=== PATIENT | male | born 1950 | race American Indian/Alaskan Native ===

== ENCOUNTER 2022-03-20 12:42 | Inpatient (IN) | payer MEDICARE ==
[2022-03-20] MEDS ORDERED: DEXTROSE 50% IN WATER (25GM) 50 ML SYRINGE IV PRN (16:42)
[2022-03-20] MEDS ORDERED: ACETAMINOPHEN 325 MG TAB PO PRN (16:42)
--- NOTE | 2022-03-20 17:02 | Event Note ---
Date: 03/20/22 38 minutes invested in record review and placing orders. Patient is a new diabetic and was covered with SSI at outside hospital. He was discharged on Jardiance 10mg daily but that medication is not available. Will continue to cover on SSI and send home with a script for Jardiance. Patient has been cleared for ASA. OSH notes reference CAT, so will start off on heparin TID until we have updated labs in AM and may transition over to lovenox if renal fxn is stable.
[2022-03-21] MEDS: HEPARIN 5,000 UNIT/1 ML VIAL SUB-Q SCH ×4 (06:51→21:32)
[2022-03-21 06:55] LABS: Basophils # (Auto) 0.1 K/mm3 (0.0-0.1); Basophils % (Auto) 1.1 % (0.0-1.8); Eosinophils # (Auto) 0.2 K/mm3 (0.0-0.4); Eosinophils % (Auto) 1.9 % (0.0-4.3); Hematocrit 39.9 % (35.5-45.6); Hemoglobin 12.7 gm/dl (11.8-15.2); Lymphocytes # (Auto) 1.4 K/mm3 (1.2-5.4); Lymphocytes % (Auto) 14.6 % (13.4-35.0); Mean Corpuscular HGB Conc 32 % (32-34); Mean Corpuscular Volume 71 fl (84-94); Monocytes # (Auto) 1.1 K/mm3 (0.0-0.8); Monocytes % (Auto) 11.7 % (0.0-7.3); Platelet Count 155 K/mm3 (140-440); Red Blood Count 5.58 M/mm3 (3.65-5.03); Red Cell Distribution Width 16.4 % (13.2-15.2)
[2022-03-21 07:17] LABS: Alanine Aminotransferase 20 units/L (7-56); Albumin 3.6 g/dL (3.9-5); BUN/Creatinine Ratio 19; Blood Urea Nitrogen 15 mg/dL (9-20); Calcium 9.5 mg/dL (8.4-10.2); Hemolysis Index 1
[2022-03-21] MEDS: carvediloL 3.125 MG TAB PO SCH ×3 (08:40→21:31)
[2022-03-21] MEDS: INSULIN LISPRO 100 UNIT/ML SUB-Q SCH ×5 (08:40→21:37)
[2022-03-21] MEDS: ASPIRIN EC 81 MG TAB PO SCH (09:31)
[2022-03-21] MEDS: LOSARTAN 25 MG TAB PO SCH (09:31)
--- NOTE | 2022-03-21 15:23 | History and Physical Report ---
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 CT head showed progressive, expanding right-sided infarct involving right frontal and right parietal lobes. MRI brain demonstrated the infarcts again involving the right posterior frontal lobe and the right occipital lobe with a small amount of hemorrhage at the right occipital lobe and trace amount at the right frontal lobe. Patient had a A1c of 6.5 which is a new diagnosis for the patient. Permissive hypertension allowed until medications were restarted. Patient is right-hand dominant and has left hemiparesis. Questionable visual involvement however patient states that he is seeing fine and appears to be able to identify objects in the room. Echo showed HFrEF which is also new diagnosis with an ejection fraction of 35 to 40%. Patient was started on Jardiance at discharge however this is not available in the hospital, will start patient on this medication once he discharges from us. After the patient was medically stabilized they were transferred for further rehabilitation. All available medical records have been reviewed. Plan of care was discussed with patient and family. Patient was discussed during team conference. So far with therapy he is doing fairly well on his first day, is impulsive and has decreased safety awareness. Balance is also poor. Questionable left inattention or visual deficits. On my exam vision appears normal but will examine over the next couple of days in different environments to see if the trend is developing. Discussed with the patient, , and son to expect to be here for approximately 2 weeks depending on his rate of recovery. Past History Past Medical History: hypertension Past Surgical History: No surgical history Social history: lives with family, smoking, other (Patient states that he drinks occasionally, smokes 2 joints a day). denies: alcohol abuse Family history: diabetes, hypertension, stroke Medications and Allergies Allergies Allergy/AdvReac Type Severity Reaction Status Date / Time No Known Allergies Allergy Unverified 03/20/22 16:41 Active Meds: Active Medications Acetaminophen (Acetaminophen 325 Mg Tab) 650 mg PO Q6H PRN PRN Reason: Pain MILD(1-3)/Fever >100.5/FRAIRE Hydrocodone Bitart/Acetaminophen (Hydrocodone/Acetaminophen 5-325 Mg Tab) 1 each PO Q8H PRN PRN Reason: Pain, Moderate (4-6) Aspirin (Aspirin Ec 81 Mg Tab) 81 mg PO QDAY [facility] Last Admin: 03/21/22 09:31 Dose: 81 mg Atorvastatin Calcium (Atorvastatin 40 Mg Tab) 40 mg PO QHS [facility] Last Admin: 03/21/22 08:40 Dose: Not Given Carvedilol (Carvedilol 3.125 Mg Tab) 3.125 mg PO BID [facility] Last Admin: 03/21/22 09:31 Dose: 3.125 mg Dextrose (Dextrose 50% In Water (25gm) 50 Ml Syringe) 50 ml IV Q30MIN PRN; Protocol PRN Reason: Hypoglycemia Heparin Sodium (Porcine) (Heparin 5,000 Unit/1 Ml Vial) 5,000 unit SUB-Q Q8HR [facility] Last Admin: 03/21/22 14:24 Dose: 5,000 unit Insulin Human Lispro (Insulin Lispro 100 Unit/Ml) 0 unit SUB-Q ACHS [facility]; Protocol Last Admin: 03/21/22 13:00 Dose: Not Given Losartan Potassium (Losartan 25 Mg Tab) 25 mg PO QDAY [facility] Last Admin: 03/21/22 09:31 Dose: 25 mg Review of Systems All systems: negative (ROS negative for 10 systems except as noted below with pertinent positives and negatives.) Constitutional: weakness, no lethargy Ears, nose, mouth and throat: no decreased hearing, no dysphagia Cardiovascular: no chest pain, no palpitations, no rapid/irregular heart beat, no edema Respiratory: no cough, no shortness of breath Gastrointestinal: no abdominal pain, no nausea, no vomiting, no diarrhea Genitourinary Male: no dysuria Musculoskeletal: gait dysfunction, no arthritis Integumentary: no rash, no pruritis, no redness, no sores Neurological: lack of coordination, change in speech, gait dysfunction, para lysis, no parathesias Psychiatric: no change in appetite, no disorientation Endocrine: high blood sugars Exam - Exam Narrative exam: MUSCULOSKELETAL SPECIALTY EXAM CONSTITUTIONAL: Well developed, well nourished, appropriately groomed. RIGHT hand dominant. LYMPHATIC: No appreciable abnormalities palpable in neck RESPIRATORY: Clear to auscultation bilaterally, no increased work of breathing CARDIOVASCULAR: Regular Rate/ Rhythm, no swelling, edema or tenderness in BUE or BLE. Pulses palpable in all extremities. All extremities warm. GI: + bowel sounds, soft, NTTP, nondistended. INTEGUMENTARY: Normal, no lesion, rash, masses or bruising noted in extremities. MUSCULOSKELETAL: BUE and BLE normal without defect, crepitus, subluxation, effusion, arthritic changes or TTP. R 4+/5 L 2-3 /5 ROM decreased on the left, normal on right Tone decreased on left, normal on right NEURO: CN II : Visual [place] full to confrontation CN II, III : PERRL CN III, IV, : EOMI CN V : Facial sensation intact CN VII : Left facial droop CN VIII : Hearing intact to finger rustle CN IX, X : Palate/uvula elevate midline, phonation normal CN XI : Reduced shoulder shrug on the left CN XII : Tongue protrudes midline Sensation intact in all extremities without extinction. Reflexes 2+ on right, 3+ on left at biceps, brachioradialis and patella. No clonus at ankles. Coordination intact in RUE. No tremor noted in 4 extremities. Naming and repetition intact. Follows 2 step commands. Aphasia not appreciated Dysarthria very mild Dysphagia not appreciated Neglect not appreciated POSTURE and GAIT: Sitting posture good. Balance impaired, gait deferred until seen with therapy. PSYCH: Alert, oriented x3, affect appears euthymic. Insight appears intact on examination but therapy states that he is impulsive and has decreased safety awareness. - Constitutional Vitals: Vital Signs - 12hr 03/21/22 03/21/22 08:52 09:01 Temperature 98.0 F Pulse Rate 57 L Blood Pressure 153/76 O2 Sat by Pulse 96 100 Oximetry - Labs CBC & Chem 7: 03/21/22 06:34 03/21/22 06:34 Labs: Laboratory Results - last 72 hr 03/21/22 03/21/22 03/21/22 00:45 06:34 06:34 WBC 9.7 RBC 5.58 H Hgb 12.7 Hct 39.9 MCV 71 L MCH 23 L MCHC 32 RDW 16.4 H Plt Count 155 Lymph % (Auto) 14.6 [place] % (Auto) 11.7 H Eos % (Auto) 1.9 Baso % (Auto) 1.1 Lymph # (Auto) 1.4 [place] # (Auto) 1.1 H Eos # (Auto) 0.2 Baso # (Auto) 0.1 Seg Neutrophils % 70.7 H Seg Neutrophils # 6.9 Sodium 141 Potassium 4.6 Chloride 105.4 Carbon Dioxide 26 Anion Gap 14 BUN 15 Creatinine 0.8 Estimated GFR > 60 BUN/Creatinine Ratio 19 Glucose 93 POC Glucose 106 H Calcium 9.5 Total Bilirubin 0.50 AST 23 ALT 20 Alkaline Phosphatase 51 Total Protein 6.7 Albumin 3.6 L Albumin/Globulin Ratio 1.2 03/21/22 07:46 WBC RBC Hgb Hct MCV MCH MCHC RDW Plt Count Lymph % (Auto) [place] % (Auto) Eos % (Auto) Baso % (Auto) Lymph # (Auto) [place] # (Auto) Eos # (Auto) Baso # (Auto) Seg Neutrophils % Seg Neutrophils # Sodium Potassium Chloride Carbon Dioxide Anion Gap BUN Creatinine Estimated GFR BUN/Creatinine Ratio Glucose POC Glucose 102 Calcium Total Bilirubin AST ALT Alkaline Phosphatase Total Protein Albumin Albumin/Globulin Ratio Assessment and Plan Assessment and plan: Patient was assessed and evaluated for Acute Inpatient Rehab Unit. Due to the patients above-mentioned medical complexity, along with decreased functional mobility and self care, this patient continues to require and be appropriate for a comprehensive, multidisciplinary [id number] rehabilitation program. These needs cannot be met in an outpatient or other less intensive setting. The patient would continue to benefit from skilled th erapy intervention for at least 3 hours per day, five days a week, with techniques specific to the needs of the patient to improve function, activities of daily living, and reintegration into the community. The patient continues to require: -- OT to improve ROM, self-care, and learn use of adaptive equipment -- PT to improve strength and balance, functional transfers, and ambulation with energy conservation techniques to improve functional mobility -- SAFETY INTERN to address cognitive deficits -- 24 hour RN to ensure and prevent skin breakdown, promote progressive independence while ensuring safety, ensure education regarding medications, and incorporation of the rehabilitation at the bedside -- 24 hour Aircraft Engine Mechanic Supervisor to coordinate this interdisciplinary program, and to manage/prevent complications as a result of the patients medical comorbidities. -Plan of care by day 4 -Weekly team conferences With such a program, there is a reasonable certainty that the goals individualized for this patient can be achieved within the specified length of stay. CVA: Continue Secondary Stroke Prevention (Antithrombotic, Statin (Goal LDL-C <70), BP control (Goal <140/90), GLU control (Goal A1c <7), and lifestyle modification). Monitor for recurrent stroke or post-stroke recrudescence. Continue neuromotor therapy as above. Family training when available. Monitor for post stroke depression, cognitive deficits, seizure, dysphagia, aphasia, shoulder hand syndrome, sensory deficits, spasticity, bowel/bladder deficits, sleep disturbance, vision deficits and DVT. Prognosis for recovery and Secondary Stroke Prevention discussed. Follow up with Neurology. No driving until cleared by Neurologist. 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 Goal blood pressure less than 140/90. Avoid hypotension Type 2 diabetes: New diagnosis, continue coverage with sliding scale insulin. Carb controlled diet. A1c 6.5. Outside hospital ordered Jardiance which is not available in house. We will start patient on Jardiance at discharge which is what they do it as well. HFrEF: New diagnosis EF 35 to 40%. Continue Coreg and Cozaar. Monitor for any signs of volume overload. Start Jardiance as outpatient Marijuana abuse: Discussed with patient the need for cessation. Patient states that he would likely cut down to 1/day. ADL dysfunction: OT will work on improving ability to perform ADLs (including assistive devices) to increase independence and decrease caregiver burden and improve functional transfers and mobility training. Difficulty walking: PT will work on gait training and proper use of assistive devices and advance as appropriate to use of stairs and outside ambulation on uneven surfaces. Unsteadiness on feet: PT will work on improving static and dynamic sitting and standing balance as well as proper use of assistive devices to decrease risk of falls. Abnormality of gait: PT will work to improve safety and efficiency of gait thro [facility] neuromotor training and gait training along with instruction on proper use of assistive devices. Muscle weakness: PT & OT will work on strengthening exercises to improve functional strength including mixture of closed and open kinetic chain exercises. Debility: PT & OT will work on improving overall functional status to improve participation with ADLs, mobility and social involvement. Fatigue: PT & OT will work on improving endurance through aerobic exercises and therapeutic activity while monitoring patients tolerance for activity and vital signs as needed. DVT ppx: Heparin currently but with renal function normalized since outside hospital we will start on Lovenox in the a.m. Pain: Continue physical modalities in therapy and pain medications as needed to achieve functional pain control. Sleep: Monitor and address as needed. Bowel: Monitor and address as needed. Appetite: Monitor and address as needed. Discharge planning: Pending therapy progress and care plan meeting. Will continue discussion with therapy team, SW, patient and family. Restrictions/ Precautions: Falls WB status: FWB Functional Hx: ADLs: Independent Cognition: Independent Mobility: No AD Barriers to Discharge: Decreased mobility and ability to perform self care, balance deficits, weakness Estimated Length of Stay: 1418 days Discharge Destination: Home with family POST ADMISSION PHYSICIAN EVALUATION I have examined the patient and find that functional status, medical condition and appropriateness for IRF admission are essentially unchanged from those described in the preadmission screening. Will monitor for worsening neurologic dysfunction, shoulder-hand syndrome, post stroke depression, recrudescence or extension, DVT/PE, bowel and bladder complications and complications due to hypertension, diabetes, heart failure and electrolyte abnormalities. Will attempt to avoid occurrence of these issues or treat them if they present themselves.
--- NOTE | 2022-03-22 07:42 | Progress Note ---
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 CT head showed progressive, expanding right-sided infarct involving right frontal and right parietal lobes. MRI brain demonstrated the infarcts again involving the right posterior frontal lobe and the right occipital lobe with a small amount of hemorrhage at the right occipital lobe and trace amount at the right frontal lobe. Patient had a A1c of 6.5 which is a new diagnosis for the patient. Permissive hypertension allowed until medications were restarted. Patient is right-hand dominant and has left hemiparesis. Questionable visual involvement however patient states that he is seeing fine and appears to be able to identify objects in the room. Echo showed HFrEF which is also new diagnosis with an ejection fraction of 35 to 40%. Patient was started on Jardiance at discharge however this is not available in the hospital, will start patient on this medication once he discharges from us. After the patient was medically stabilized they were transferred for further rehabilitation. All available medical records have been reviewed. Plan of care was discussed with patient and family. Interval History: Patient is participating in therapy and making reasonable progress. Taking rest breaks as needed. +BM. Denies pain, palpitations, dyspnea, cough, N/V, or joint pain. CVA: No signs of shoulder-hand syndrome, post drug depression or worsening neurologic changes or spasticity. Continue to monitor. Continue secondary stroke prevention and therapy. Hypertension: Continue medications and adjust as needed, goal less than 140/90. Doing fairly well currently Diabetes, new onset: Continue carb controlled diet and coverage with sliding scale. Patient will discharge home on Jardiance which is not available currently HFrEF: New diagnosis, no signs of fluid overload or cardiac distress. Continue to monitor ADL and mobility dysfunction: Continue therapy to improve patient's ability to ambulate and perform ADLs with the least amount of intervention as possible. Poor balance: Continue therapy to improve patient's steadiness on feet and static/dynamic balance Impulsiveness and poor safety awareness: Continue therapy to improve safety awareness. This may be personality more so than actual stroke related issue. Have consulted and discussed with speech therapy to assess for cognitive issues that may be able to be addressed. All records, vitals, labs and medications were reviewed. No other issues per patient, nursing or therapy. Objective - Exam Narrative Exam: MUSCULOSKELETAL SPECIALTY EXAM CONSTITUTIONAL: Well developed, well nourished, appropriately groomed. RIGHT hand dominant. RESPIRATORY: Clear to auscultation bilaterally, no increased work of breathing CARDIOVASCULAR: Regular Rate/ Rhythm, no swelling, edema or tenderness in BUE or BLE. All extremities warm. GI: + bowel sounds, soft, NTTP, nondistended. INTEGUMENTARY: Normal, no lesion, rash, masses or bruising noted in extremities. MUSCULOSKELETAL: BUE and BLE normal without defect, crepitus, subluxation, effusion, arthritic changes or TTP. R 4+/5 L 2-3 /5 ROM decreased on the left, normal on right Tone decreased on left, normal on right NEURO: CN VII : Left facial droop CN XI : Reduced shoulder shrug on the left Sensation intact in all extremities without extinction. No tremor noted in 4 extremities. Naming and repetition intact. Follows 2 step commands. Aphasia not appreciated Dysarthria very mild Dysphagia not appreciated Neglect not appreciated POSTURE and GAIT: Sitting posture good. Balance impaired, gait deferred until seen with therapy. PSYCH: Alert, oriented x3, affect appears euthymic. Insight appears intact on examination but therapy states that he is impulsive and has decreased safety awareness. - Constitutional Vitals: Vital Signs - 12hr 03/21/22 03/21/22 03/21/22 21:25 21:31 23:53 Temperature 98.9 F 98.5 F Pulse Rate 64 64 63 Respiratory 18 14 Rate Blood Pressure 138/55 129/52 Blood Pressure 158/55 [Right] O2 Sat by Pulse 98 95 Oximetry 03/22/22 03/22/22 00:00 05:09 Temperature 97.9 F Pulse Rate 50 L Respiratory 14 Rate Blood Pressure 122/64 Blood Pressure [Right] O2 Sat by Pulse 98 98 Oximetry - Allied health notes Allied health notes reviewed: nursing, PT, OT - Labs CBC & Chem 7: 03/21/22 06:34 03/21/22 06:34 Labs: Laboratory Results - last 72 hr 03/21/22 03/21/22 03/21/22 00:45 06:34 06:34 WBC 9.7 RBC 5.58 H Hgb 12.7 Hct 39.9 MCV 71 L MCH 23 L MCHC 32 RDW 16.4 H Plt Count 155 Lymph % (Auto) 14.6 [place] % (Auto) 11.7 H Eos % (Auto) 1.9 Baso % (Auto) 1.1 Lymph # (Auto) 1.4 [place] # (Auto) 1.1 H Eos # (Auto) 0.2 Baso # (Auto) 0.1 Seg Neutrophils % 70.7 H Seg Neutrophils # 6.9 Sodium 141 Potassium 4.6 Chloride 105.4 Carbon Dioxide 26 Anion Gap 14 BUN 15 Creatinine 0.8 Estimated GFR > 60 BUN/Creatinine Ratio 19 Glucose 93 POC Glucose 106 H Calcium 9.5 Total Bilirubin 0.50 AST 23 ALT 20 Alkaline Phosphatase 51 Total Protein 6.7 Albumin 3.6 L Albumin/Globulin Ratio 1.2 03/21/22 03/21/22 03/21/22 07:46 16:06 21:14 WBC RBC Hgb Hct MCV MCH MCHC RDW Plt Count Lymph % (Auto) [place] % (Auto) Eos % (Auto) Baso % (Auto) Lymph # (Auto) [place] # (Auto) Eos # (Auto) Baso # (Auto) Seg Neutrophils % Seg Neutrophils # Sodium Potassium Chloride Carbon Dioxide Anion Gap BUN Creatinine Estimated GFR BUN/Creatinine Ratio Glucose POC Glucose 102 90 117 H Calcium Total Bilirubin AST ALT Alkaline Phosphatase Total Protein Albumin Albumin/Globulin Ratio Assessment and Plan CVA: Continue Secondary Stroke Prevention (Antithrombotic, Statin (Goal LDL-C <70), BP control (Goal <140/90), GLU control (Goal A1c <7), and lifestyle modification). Monitor for recurrent stroke or post-stroke recrudescence. Continue neuromotor therapy as above. Family training when available. Monitor for post stroke depression, cognitive deficits, seizure, dysphagia, aphasia, shoulder hand syndrome, sensory deficits, spasticity, bowel/bladder deficits, sleep disturbance, vision deficits and DVT. Prognosis for recovery and Secondary Stroke Prevention discussed. Follow up with Neurology. No driving until cleared by Neurologist. 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 Goal blood pressure less than 140/90. Avoid hypotension Type 2 diabetes: New diagnosis, continue coverage with sliding scale insulin. Carb controlled diet. A1c 6.5. Outside hospital ordered Jardiance which is not available in house. We will start patient on Jardiance at discharge which is what they do it as well. HFrEF: New diagnosis EF 35 to 40%. Continue Coreg and Cozaar. Monitor for any signs of volume overload. Start Jardiance as outpatient Marijuana abuse: Discussed with patient the need for cessation. Patient states that he would likely cut down to 1/day. Impulsiveness and poor safety awareness: Continue to reinforce safety through therapy. Will have speech therapy evaluate for any cognitive issues. May be personality related. ADL dysfunction: OT will work on improving ability to perform ADLs (including assistive devices) to increase independence and decrease caregiver burden and improve functional transfers and mobility training. Difficulty walking: PT will work on gait training and proper use of assistive devices and advance as appropriate to use of stairs and outside ambulation on uneven surfaces. Unsteadiness on feet: PT will work on improving static and dynamic sitting and standing balance as well as proper use of assistive devices to decrease risk of falls. Abnormality of gait: PT will work to improve safety and efficiency of gait through neuromotor training and gait training along with instruction on proper use of assistive devices. Muscle weakness: PT & OT will work on strengthening exercises to improve functional strength including mixture of closed and open kinetic chain e xercises. Debility: PT & OT will work on improving overall functional status to improve participation with ADLs, mobility and social involvement. Fatigue: PT & OT will work on improving endurance through aerobic exercises and therapeutic activity while monitoring patients tolerance for activity and vital signs as needed. DVT ppx: Lovenox Pain: Continue physical modalities in therapy and pain medications as needed to achieve functional pain control. Sleep: Monitor and address as needed. Bowel: Monitor and address as needed. Appetite: Monitor and address as needed. Discharge planning: Pending therapy progress and care plan meeting. Will continue discussion with therapy team, SW, patient and family. Restrictions/ Precautions: Falls WB status: FWB Functional Hx: ADLs: Independent Cognition: Independent Mobility: No AD Barriers to Discharge: Decreased mobility and ability to perform self care, balance deficits, weakness Estimated Length of Stay: 1418 days Discharge Destination: Home with family
[2022-03-22] MEDS: INSULIN LISPRO 100 UNIT/ML SUB-Q SCH ×4 (08:25→21:47)
[2022-03-22] MEDS: ENOXAPARIN 40 MG/0.4 ML INJ SUB-Q SCH (09:19)
[2022-03-22] MEDS: carvediloL 3.125 MG TAB PO SCH ×2 (09:19→21:46)
[2022-03-22] MEDS: ASPIRIN EC 81 MG TAB PO SCH (09:20)
[2022-03-22] MEDS: LOSARTAN 25 MG TAB PO SCH (09:20)
--- NOTE | 2022-03-23 07:54 | Progress Note ---
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 CT head showed progressive, expanding right-sided infarct involving right frontal and right parietal lobes. MRI brain demonstrated the infarcts again involving the right posterior frontal lobe and the right occipital lobe with a small amount of hemorrhage at the right occipital lobe and trace amount at the right frontal lobe. Patient had a A1c of 6.5 which is a new diagnosis for the patient. Permissive hypertension allowed until medications were restarted. Patient is right-hand dominant and has left hemiparesis. Questionable visual involvement however patient states that he is seeing fine and appears to be able to identify objects in the room. Echo showed HFrEF which is also new diagnosis with an ejection fraction of 35 to 40%. Patient was started on Jardiance at discharge however this is not available in the hospital, will start patient on this medication once he discharges from us. After the patient was medically stabilized they were transferred for further rehabilitation. All available medical records have been reviewed. Plan of care was discussed with patient and family. Interval History: Patient is participating in therapy and making reasonable progress. Taking rest breaks as needed. +BM. Denies pain, palpitations, dyspnea, cough, N/V, or joint pain. CVA: No signs of shoulder-hand syndrome, post drug depression or worsening neurologic changes or spasticity. Continue to monitor. Continue secondary stroke prevention and therapy. Hypertension: Continue medications and adjust as needed, goal less than 140/90. Doing fairly well currently Diabetes, new onset: Continue carb controlled diet and coverage with sliding scale. Glucose within a good range. Patient will discharge home on Jardiance which is not available currently HFrEF: New diagnosis, no signs of fluid overload or cardiac distress. Continue to monitor ADL and mobility dysfunction: Continue therapy to improve patient's ability to ambulate and perform ADLs with the least amount of intervention as possible. Poor balance: Continue therapy to improve patient's steadiness on feet and static/dynamic balance Impulsiveness and poor safety awareness: Continue therapy to improve safety awareness. This may be personality more so than actual stroke related issue. Have consulted and discussed with speech therapy to assess for cognitive issues that may be able to be addressed. Speech therapy evaluation reviewed, no significant deficits noted All records, vitals, labs and medications were reviewed. No other issues per patient, nursing or therapy. Objective - Exam Narrative Exam: MUSCULOSKELETAL SPECIALTY EXAM CONSTITUTIONAL: Well developed, well nourished, appropriately groomed. RIGHT hand dominant. RESPIRATORY: Clear to auscultation bilaterally, no increased work of breathing CARDIOVASCULAR: Regular Rate/ Rhythm, no swelling, edema or tenderness in BUE or BLE. All extremities warm. GI: + bowel sounds, soft, NTTP, nondistended. INTEGUMENTARY: Normal, no lesion, rash, masses or bruising noted in extremities. MUSCULOSKELETAL: BUE and BLE normal without defect, crepitus, subluxation, effusion, arthritic changes or TTP. R 4+/5 L 2-3 /5 patient does have some return of function in the shoulder but not full range, trace movement in the fingers and wrist ROM decreased on the left, normal on right Tone decreased on left, normal on right NEURO: CN VII : Left facial droop CN XI : Reduced shoulder shrug on the left Sensation intact in all extremities without extinction. No tremor noted in 4 extremities. Naming and repetition intact. Follows 2 step commands. Aphasia not appreciated Dysarthria very mild Dysphagia not appreciated Neglect not appreciated POSTURE and GAIT: Sitting posture good. Balance impaired, gait deferred until seen with therapy. PSYCH: Alert, oriented x3, affect appears euthymic. Insight appears intact on examination but therapy states that he is impulsive and has decreased safety aw areness, quite possibly personality related. - Constitutional Vitals: Vital Signs - 12hr 03/22/22 03/22/22 03/23/22 21:21 23:00 03:16 Temperature 98.7 F 97.5 F L Pulse Rate 63 50 L Respiratory 16 18 14 Rate Blood Pressure 138/52 135/64 O2 Sat by Pulse 98 97 99 Oximetry - Allied health notes Allied health notes reviewed: nursing, PT, ST, OT - Labs CBC & Chem 7: 03/21/22 06:34 03/21/22 06:34 Labs: Laboratory Results - last 72 hr 03/21/22 03/21/22 03/21/22 00:45 06:34 06:34 WBC 9.7 RBC 5.58 H Hgb 12.7 Hct 39.9 MCV 71 L MCH 23 L MCHC 32 RDW 16.4 H Plt Count 155 Lymph % (Auto) 14.6 [place] % (Auto) 11.7 H Eos % (Auto) 1.9 Baso % (Auto) 1.1 Lymph # (Auto) 1.4 [place] # (Auto) 1.1 H Eos # (Auto) 0.2 Baso # (Auto) 0.1 Seg Neutrophils % 70.7 H Seg Neutrophils # 6.9 Sodium 141 Potassium 4.6 Chloride 105.4 Carbon Dioxide 26 Anion Gap 14 BUN 15 Creatinine 0.8 Estimated GFR > 60 BUN/Creatinine Ratio 19 Glucose 93 POC Glucose 106 H Calcium 9.5 Total Bilirubin 0.50 AST 23 ALT 20 Alkaline Phosphatase 51 Total Protein 6.7 Albumin 3.6 L Albumin/Globulin Ratio 1.2 03/21/22 03/21/22 03/21/22 07:46 16:06 21:14 WBC RBC Hgb Hct MCV MCH MCHC RDW Plt Count Lymph % (Auto) [place] % (Auto) Eos % (Auto) Baso % (Auto) Lymph # (Auto) [place] # (Auto) Eos # (Auto) Baso # (Auto) Seg Neutrophils % Seg Neutrophils # Sodium Potassium Chloride Carbon Dioxide Anion Gap BUN Creatinine Estimated GFR BUN/Creatinine Ratio Glucose POC Glucose 102 90 117 H Calcium Total Bilirubin AST ALT Alkaline Phosphatase Total Protein Albumin Albumin/Globulin Ratio 03/22/22 03/22/22 03/22/22 08:01 12:32 16:56 WBC RBC Hgb Hct MCV MCH MCHC RDW Plt Count Lymph % (Auto) [place] % (Auto) Eos % (Auto) Baso % (Auto) Lymph # (Auto) [place] # (Auto) Eos # (Auto) Baso # (Auto) Seg Neutrophils % Seg Neutrophils # Sodium Potassium Chloride Carbon Dioxide Anion Gap BUN Creatinine Estimated GFR BUN/Creatinine Ratio Glucose POC Glucose 87 119 H 118 H Calcium Total Bilirubin AST ALT Alkaline Phosphatase Total Protein Albumin Albumin/Globulin Ratio 03/22/22 21:23 WBC RBC Hgb Hct MCV MCH MCHC RDW Plt Count Lymph % (Auto) [place] % (Auto) Eos % (Auto) Baso % (Auto) Lymph # (Auto) [place] # (Auto) Eos # (Auto) Baso # (Auto) Seg Neutrophils % Seg Neutrophils # Sodium Potassium Chloride Carbon Dioxide Anion Gap BUN Creatinine Estimated GFR BUN/Creatinine Ratio Glucose POC Glucose 104 Calcium Total Bilirubin AST ALT Alkaline Phosphatase Total Protein Albumin Albumin/Globulin Ratio Assessment and Plan CVA: Continue Secondary Stroke Prevention (Antithrombotic, Statin (Goal LDL-C <70), BP control (Goal <140/90), GLU control (Goal A1c <7), and lifestyle modification). Monitor for recurrent stroke or post-stroke recrudescence. Continue neuromotor therapy as above. Family training when available. Monitor for post stroke depression, cognitive deficits, seizure, dysphagia, aphasia, shoulder hand syndrome, sensory deficits, spasticity, bowel/bladder deficits, sleep disturbance, vision deficits and DVT. Prognosis for recovery and Secondary Stroke Prevention discussed. Follow up with Neurology. No driving until cleared by Neurologist. 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 Goal blood pressure less than 140/90. Avoid hypotension Type 2 diabetes: New diagnosis, continue coverage with sliding scale insulin. Carb controlled diet. A1c 6.5. Outside hospital ordered Jardiance which is not available in house. We will start patient on Jardiance at discharge which is what they do it as well. HFrEF: New diagnosis EF 35 to 40%. Continue Coreg and Cozaar. Monitor for any signs of volume overload. Start Jardiance as outpatient Marijuana abuse: Discussed with patient the need for cessation. Patient states that he would likely cut down to 1/day. Impulsiveness and poor safety awareness: Continue to reinforce safety through therapy. Speech therapy eval did not elucidate any significant deficits. May be personality related. ADL dysfunction: OT will work on improving ability to perform ADLs (including assistive devices) to increase independence and decrease caregiver burden and improve functional transfers and mobility training. Difficulty walking: PT will work on gait training and proper use of assistive devices and advance as appropriate to use of stairs and outside ambulation on uneven surfaces. Unsteadiness on feet: PT will work on improving static and dynamic sitting and standing balance as well as proper use of assistive devices to decrease risk of falls. Abnormality of gait: PT will work to improve safety and efficiency of gait th rough neuromotor training and gait training along with instruction on proper use of assistive devices. Muscle weakness: PT & OT will work on strengthening exercises to improve functional strength including mixture of closed and open kinetic chain exercises. Debility: PT & OT will work on improving overall functional status to improve participation with ADLs, mobility and social involvement. Fatigue: PT & OT will work on improving endurance through aerobic exercises and therapeutic activity while monitoring patients tolerance for activity and vital signs as needed. DVT ppx: Lovenox Pain: Continue physical modalities in therapy and pain medications as needed to achieve functional pain control. Sleep: Monitor and address as needed. Bowel: Monitor and address as needed. Appetite: Monitor and address as needed. Discharge planning: Pending therapy progress and care plan meeting. Will continue discussion with therapy team, SW, patient and family. Restrictions/ Precautions: Falls WB status: FWB Functional Hx: ADLs: Independent Cognition: Independent Mobility: No AD Barriers to Discharge: Decreased mobility and ability to perform self care, balance deficits, weakness Estimated Length of Stay: 1418 days Discharge Destination: Home with family
[2022-03-23] MEDS: INSULIN LISPRO 100 UNIT/ML SUB-Q SCH ×3 (08:32→16:48)
[2022-03-23] MEDS: LOSARTAN 25 MG TAB PO SCH (14:20)
[2022-03-23] MEDS: carvediloL 3.125 MG TAB PO SCH (14:20)
[2022-03-23] MEDS: ENOXAPARIN 40 MG/0.4 ML INJ SUB-Q SCH (14:21)
[2022-03-23] MEDS: ASPIRIN EC 81 MG TAB PO SCH (14:21)
--- NOTE | 2022-03-23 18:45 | IRU Plan of Care ---
Interdisciplinary Plan of Care - IPOC IRU INTERDISCIPLINARY PLAN: [facility] Inpatient Rehab Unit Plan of Care IRU Interdisciplinary Care Plan Start: 03/21/22 15:00 Freq: Status: Active Protocol: Document 03/23/22 17:36 TH (Rec: 03/23/22 17:40 TH [email or web address]) IRU Interdisciplinary Care Plan Therapy Services Therapy Services Will Include: Physical Therapy,Occupational Query Text:Patient will be seen for a Therapy minimum of 3 hours of daily therapy 5 out of 7 days a week. Therapy intensity may be adjusted within a 7 consecutive day period to effectively serve the individual needs of the patient. Treatment Frequency/Intensity/Duration Treatment Frequency 5X/WEEK Treatment Intensity 3 HOURS/DAY Treatment Duration 7-10 DAYS Problem Area: Eating/Swallowing Eating/Swallowing Outcomes Feed Self Eating/Swallowing Outcomes Feed Self Problem Area: Bathing/Grooming Bathing/Grooming Outcomes Improve [place] w/ Grooming,Improve [place] w/ Bathing Bathing/Grooming Interventions ADL Training,Use of Assistive Devices,Therapeutic Activity, Neuromuscular Re-Education, Patient/Caregiver Education Problem Area: Dressing Dressing Outcomes Improve [place] w/ UB Dressing,Improve [place] w/ LB Dressing Dressing Interventions ADL Training,Use of Assistive Devices,Neuromuscular Re- Education,Balance Work,Patient /Caregiver Education Problem Area: Mobility Mobility Outcomes Improve [place] w/ Bed Mobility,Improve [place] w/ Ambulation,Improve [place] w/ Stairs/Curb, Improve [place] w/ Wheelchair Mobility Interventions Therapeutic Exercise, Neuromuscular Re-Ed.,Activity Tolerance Work,Use of Assistive Devices,Patient/ Caregiver Education,Bed Mobility Work,Gait Training, Household Mobility Work,W/C Mobility Work Problem Area: Transfers Transfers Outcomes Improve [place] w/ Bed Transfers,Improve [place] w/ Car Transfers Transfers Interventions Transfer Training,Therapeutic Exercise,Neuromuscular Re- Education,Use of Assistive Devices,Patient/Caregiver Education Problem Area: Bowel/Bladder Managment Bowel/Bladder Outcomes Bowel/Bladder Interventions Problem Area: Toileting Toileting Outcomes Improve [place] w/ Toileting Toileting Interventions ADL Training,Balance Work,Use of Assistive Devices,Patient/ Caregiver Education Problem Area: Nutrition Nutrition Outcomes Nutrition Interventions Problem Area: Comprehension Comprehension Outcomes Comprehension Interventions Problem Area: Expression Expression Outcomes Expression Interventions Problem Area: Problem Solving Problem Solving Outcomes Improve Problem Solving Problem Solving Interventions Safety Education,Patient/ Caregiver Education Problem Area: Memory Memory Outcomes Memory Interventions Problem Area: Pain Management Pain Management Outcomes Pain Management Interventions Problem Area: Knowledge Deficits Knowledge Deficits Outcomes Knowledge Deficits Interventions Problem Area: Skin/Tissue Integrity Skin/Tissue Integrity Outcomes Skin/Tissue Integrity Interventions Problem Area: Social Interaction Social Interaction Outcomes Social Interaction Interventions Problem Area: Adjustment to Disability Adjustment to Disability Outcomes Adjustment to Disability Interventions Problem Area: Discharge Concerns Discharge Concerns Outcomes Discharge w/ Necessary Equipment,Have Home Health/ Outpatient Services Discharge Concerns Interventions Discharge Planning,Equipment Assessment, Acquisition and Placement,Family/Caregiver Training Problem Area: Community Reintegration Community Reintegration Outcomes Community Reintegration Interventions Problem Area: Home Management Home Management Outcomes Improve [place] w/ Home Management Home Management Interventions Meal Preparation,Clothing Care ,Patient/Caregiver Education Problem Area: Safety Safety Outcomes Provide Safe Environment, Perform Selfcare Safely, Demonstrate Good Safety w/ Transfers/Mobility Safety Interventions Identify Fall Risk,[place] Pt. to Environment,Reduce Environmental Hazards,Neuro Check Assessment Problem Area: Medication Education Medication Education Outcomes Medication Education Interventions Problem Area: Diabetes Education Diabetes Education Outcomes Diabetes Education Interventions Problem Area: Oxygenation Oxygenation Outcomes Oxygenation Interventions Problem Area: Cardiovascular Cardiovascular Outcomes Maintain or Improve Cardiovascular Status Cardiovascular Interventions Assess Vital Signs at least Every 4 hours Physician Only Medical Prognosis and Rehabilitation Good prognosis, good rehab potential Potential (Completed by Physician) Interdisciplinary Problem List Interdisciplinary Problem List Interdisciplinary Problem List Impaired Eating/Swallowing, Query Text:Answers will Trigger Problems Impaired Bathing/Grooming, and Outcomes on Worklist. Impaired Dressing,Impaired Mobility,Impaired Transfers, Impaired Toileting,Discharge Concerns,Impaired Home Management,Impaired Safety, Impaired Cardiovascular System This plan of care has been developed based on the findings from the pre- admission assessment, post admission physician evaluation, information gathered from the assessments from all therapy disciplines and other pertinent clinicians. The plan of care has been reviewed and discussed in collaboration with the interdisciplinary team. The plan of care will be reviewed and updated at least weekly.
[2022-03-24 07:13] LABS: Hematocrit 41.2 % (35.5-45.6); Hemoglobin 12.9 gm/dl (11.8-15.2); Mean Corpuscular HGB Conc 31 % (32-34); Mean Corpuscular Volume 72 fl (84-94); Platelet Count 159 K/mm3 (140-440); Red Blood Count 5.74 M/mm3 (3.65-5.03); Red Cell Distribution Width 15.8 % (13.2-15.2)
[2022-03-24 07:28] LABS: Blood Urea Nitrogen 12 mg/dL (9-20); Calcium 9.5 mg/dL (8.4-10.2); Hemolysis Index 4
[2022-03-24] MEDS: INSULIN LISPRO 100 UNIT/ML SUB-Q SCH ×5 (07:36→21:18)
[2022-03-24] MEDS: carvediloL 3.125 MG TAB PO SCH ×3 (07:36→21:20)
[2022-03-24 07:38] LABS: BUN/Creatinine Ratio 17
--- NOTE | 2022-03-24 09:25 | Progress Note ---
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 CT head showed progressive, expanding right-sided infarct involving right frontal and right parietal lobes. MRI brain demonstrated the infarcts again involving the right posterior frontal lobe and the right occipital lobe with a small amount of hemorrhage at the right occipital lobe and trace amount at the right frontal lobe. Patient had a A1c of 6.5 which is a new diagnosis for the patient. Permissive hypertension allowed until medications were restarted. Patient is right-hand dominant and has left hemiparesis. Questionable visual involvement however patient states that he is seeing fine and appears to be able to identify objects in the room. Echo showed HFrEF which is also new diagnosis with an ejection fraction of 35 to 40%. Patient was started on Jardiance at discharge however this is not available in the hospital, will start patient on this medication once he discharges from us. After the patient was medically stabilized they were transferred for further rehabilitation. All available medical records have been reviewed. Plan of care was discussed with patient and family. Interval History: Patient is participating in therapy and making reasonable progress. Taking rest breaks as needed. +BM. Denies pain, palpitations, dyspnea, cough, N/V, or joint pain. Low-grade fever overnight, WBCs slightly elevated. Patient denies cough dysuria or other symptoms. Recheck WBCs in the morning, if more elevated or if he spikes another fever we will order a fever work-up. CVA: No signs of shoulder-hand syndrome, post drug depression or worsening neurologic changes or spasticity. Continue to monitor. Continue secondary stroke prevention and therapy. Hypertension: Continue medications and adjust as needed, goal less than 140/90. Doing fairly well currently Diabetes, new onset: Continue carb controlled diet and coverage with sliding scale. Glucose within a good range. Patient will discharge home on Jardiance which is not available currently HFrEF: New diagnosis, no signs of fluid overload or cardiac distress. Continue to monitor ADL and mobility dysfunction: Continue therapy to improve patient's ability to ambulate and perform ADLs with the least amount of intervention as possible. Poor balance: Continue therapy to improve patient's steadiness on feet and static/dynamic balance Impulsiveness and poor safety awareness: Continue therapy to improve safety awareness. This may be personality more so than actual stroke related issue. Have consulted and discussed with speech therapy to assess for cognitive issues that may be able to be addressed. Speech therapy evaluation reviewed, no significant deficits noted All records, vitals, labs and medications were reviewed. No other issues per patient, nursing or therapy. Objective - Exam Narrative Exam: MUSCULOSKELETAL SPECIALTY EXAM CONSTITUTIONAL: Well developed, well nourished, appropriately groomed. RIGHT hand dominant. RESPIRATORY: Clear to auscultation bilaterally, no increased work of breathing CARDIOVASCULAR: Regular Rate/ Rhythm, no swelling, edema or tenderness in BUE or BLE. All extremities warm. GI: + bowel sounds, soft, NTTP, nondistended. INTEGUMENTARY: Normal, no lesion, rash, masses or bruising noted in extremities. MUSCULOSKELETAL: BUE and BLE normal without defect, crepitus, subluxation, effusion, arthritic changes or TTP. R 4+/5 L 2-3 /5 patient does have some return of function in the shoulder but not full range, trace movement in the fingers and wrist ROM decreased on the left, normal on right Tone decreased on left, normal on right NEURO: CN VII : Left facial droop CN XI : Reduced shoulder shrug on the left Sensation intact in all extremities without extinction. No tremor noted in 4 extremities. Naming and repetition intact. Follows 2 step commands. Aphasia not appreciated Dysarthria very mild Dysphagia not appreciated Neglect not appreciated POSTURE and GAIT: Sitting posture good. Balance impaired, gait deferred until seen with therapy. PSYCH: Alert, oriented x3, affect appears euthymic. Insight appears intact on examination but therapy states that he is impulsive and has decreased safety awareness, quite possibly personality related. - Constitutional Vitals: Vital Signs - 12hr 03/23/22 03/23/22 23:24 23:35 Temperature 99.6 F Pulse Rate 68 71 Respiratory 17 18 Rate Blood Pressure 99/54 135/56 [Right] O2 Sat by Pulse 99 99 Oximetry - Allied health notes Allied health notes reviewed: nursing, PT, OT - Labs CBC & Chem 7: 03/24/22 06:32 03/24/22 06:32 Labs: Laboratory Results - last 72 hr 03/21/22 03/21/22 03/22/22 16:06 21:14 08:01 WBC RBC Hgb Hct MCV MCH MCHC RDW Plt Count Sodium Potassium Chloride Carbon Dioxide Anion Gap BUN Creatinine Estimated GFR BUN/Creatinine Ratio Glucose POC Glucose 90 117 H 87 Calcium 03/22/22 03/22/22 03/22/22 12:32 16:56 21:23 WBC RBC Hgb Hct MCV MCH MCHC RDW Plt Count Sodium Potassium Chloride Carbon Dioxide Anion Gap BUN Creatinine Estimated GFR BUN/Creatinine Ratio Glucose POC Glucose 119 H 118 H 104 Calcium 03/23/22 03/23/22 03/23/22 08:27 16:31 20:03 WBC RBC Hgb Hct MCV MCH MCHC RDW Plt Count Sodium Potassium Chloride Carbon Dioxide Anion Gap BUN Creatinine Estimated GFR BUN/Creatinine Ratio Glucose POC Glucose 76 92 147 H Calcium 03/24/22 03/24/22 03/24/22 06:32 06:32 08:21 WBC 11.1 H RBC 5.74 H Hgb 12.9 Hct 41.2 MCV 72 L MCH 22 L MCHC 31 L RDW 15.8 H Plt Count 159 Sodium 137 Potassium 4.5 Chloride 102.4 Carbon Dioxide 25 Anion Gap 14 BUN 12 Creatinine 0.7 L Estimated GFR > 60 BUN/Creatinine Ratio 17 Glucose 102 H POC Glucose 97 Calcium 9.5 Assessment and Plan CVA: Continue Secondary Stroke Prevention (Antithrombotic, Statin (Goal LDL-C <70), BP control (Goal <140/90), GLU control (Goal A1c <7), and lifestyle modification). Monitor for recurrent stroke or post-stroke recrudescence. Continue neuromotor therapy as above. Family training when available. Monitor for post stroke depression, cognitive deficits, seizure, dysphagia, aphasia, shoulder hand syndrome, sensory deficits, spasticity, bowel/bladder deficits, sleep disturbance, vision deficits and DVT. Prognosis for recovery and Secondary Stroke Prevention discussed. Follow up with Neurology. No driving until cleared by Neurologist. Right P D DRIVER and MCA infarcts Hypertension: Continue medications and adjust for normotension. Goal blood pressure less than 140/90. Avoid hypotension Type 2 diabetes: New diagnosis, continue coverage with sliding scale insulin. Carb controlled diet. A1c 6.5. Outside hospital ordered Jardiance which is not available in house. We will start patient on Jardiance at discharge which is what they do it as well. Slight leukocytosis: Mild fever of 99.9 overnight and slight leukocytosis of 11.1. Patient denying any symptoms, likely not clinically significant. We will continue to monitor and work-up if he spikes another true fever or if white cou nt is elevated tomorrow morning HFrEF: New diagnosis EF 35 to 40%. Continue Coreg and Cozaar. Monitor for any signs of volume overload. Start Jardiance as outpatient Marijuana abuse: Discussed with patient the need for cessation. Patient states that he would likely cut down to 1/day. Impulsiveness and poor safety awareness: Continue to reinforce safety through therapy. Speech therapy eval did not elucidate any significant deficits. May be personality related. ADL dysfunction: OT will work on improving ability to perform ADLs (including assistive devices) to increase independence and decrease caregiver burden and improve functional transfers and mobility training. Difficulty walking: PT will work on gait training and proper use of assistive devices and advance as appropriate to use of stairs and outside ambulation on uneven surfaces. Unsteadiness on feet: PT will work on improving static and dynamic sitting and standing balance as well as proper use of assistive devices to decrease risk of falls. Abnormality of gait: PT will work to improve safety and efficiency of gait t hrough neuromotor training and gait training along with instruction on proper use of assistive devices. Muscle weakness: PT & OT will work on strengthening exercises to improve functional strength including mixture of closed and open kinetic chain exercises. Debility: PT & OT will work on improving overall functional status to improve participation with ADLs, mobility and social involvement. Fatigue: PT & OT will work on improving endurance through aerobic exercises and therapeutic activity while monitoring patients tolerance for activity and vital signs as needed. DVT ppx: Lovenox Pain: Continue physical modalities in therapy and pain medications as needed to achieve functional pain control. Sleep: Monitor and address as needed. Bowel: Monitor and address as needed. Appetite: Monitor and address as needed. Discharge planning: Pending therapy progress and care plan meeting. Will continue discussion with therapy team, SW, patient and family. Restrictions/ Precautions: Falls WB status: FWB Functional Hx: ADLs: Independent Cognition: Independent Mobility: No AD Barriers to Discharge: Decreased mobility and ability to perform self care, balance deficits, weakness Estimated Length of Stay: 1418 days Discharge Destination: Home with family
[2022-03-24] MEDS: LOSARTAN 25 MG TAB PO SCH (09:43)
[2022-03-24] MEDS: ENOXAPARIN 40 MG/0.4 ML INJ SUB-Q SCH (09:44)
[2022-03-24] MEDS: ASPIRIN EC 81 MG TAB PO SCH (09:44)
[2022-03-24] MEDS: HYDROcodone/ACETAMINOPHEN 5-325 MG TAB PO PRN (15:12)
[2022-03-24] MEDS: LIDOCAINE 5% 1 EACH PATCH TD SCH (15:41)
[2022-03-25 08:23] LABS: Hematocrit 38.9 % (35.5-45.6); Hemoglobin 12.3 gm/dl (11.8-15.2); Mean Corpuscular HGB Conc 32 % (32-34); Mean Corpuscular Volume 71 fl (84-94); Platelet Count 161 K/mm3 (140-440); Red Blood Count 5.46 M/mm3 (3.65-5.03); Red Cell Distribution Width 15.7 % (13.2-15.2)
[2022-03-25] MEDS: HYDROcodone/ACETAMINOPHEN 5-325 MG TAB PO PRN ×2 (08:28→20:47)
[2022-03-25] MEDS: INSULIN LISPRO 100 UNIT/ML SUB-Q SCH ×4 (10:24→21:33)
[2022-03-25] MEDS: ENOXAPARIN 40 MG/0.4 ML INJ SUB-Q SCH (12:11)
[2022-03-25] MEDS: LOSARTAN 25 MG TAB PO SCH (12:11)
[2022-03-25] MEDS: LIDOCAINE 5% 1 EACH PATCH TD SCH (12:11)
[2022-03-25] MEDS: carvediloL 3.125 MG TAB PO SCH ×2 (12:11→21:33)
[2022-03-25] MEDS: ASPIRIN EC 81 MG TAB PO SCH (12:11)
[2022-03-26] MEDS: INSULIN LISPRO 100 UNIT/ML SUB-Q SCH ×4 (08:22→22:01)
[2022-03-26] MEDS: LOSARTAN 25 MG TAB PO SCH (10:46)
[2022-03-26] MEDS: ENOXAPARIN 40 MG/0.4 ML INJ SUB-Q SCH (10:46)
[2022-03-26] MEDS: ASPIRIN EC 81 MG TAB PO SCH (10:46)
[2022-03-26] MEDS: LIDOCAINE 5% 1 EACH PATCH TD SCH (10:46)
[2022-03-26] MEDS: carvediloL 3.125 MG TAB PO SCH ×2 (10:46→21:59)
--- NOTE | 2022-03-27 08:17 | Progress Note ---
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 CT head showed progressive, expanding right-sided infarct involving right frontal and right parietal lobes. MRI brain demonstrated the infarcts again involving the right posterior frontal lobe and the right occipital lobe with a small amount of hemorrhage at the right occipital lobe and trace amount at the right frontal lobe. Patient had a A1c of 6.5 which is a new diagnosis for the patient. Permissive hypertension allowed until medications were restarted. Patient is right-hand dominant and has left hemiparesis. Questionable visual involvement however patient states that he is seeing fine and appears to be able to identify objects in the room. Echo showed HFrEF which is also new diagnosis with an ejection fraction of 35 to 40%. Patient was started on Jardiance at discharge however this is not available in the hospital, will start patient on this medication once he discharges from us. After the patient was medically stabilized they were transferred for further rehabilitation. All available medical records have been reviewed. Plan of care was discussed with patient and family. Interval History: Patient is participating in therapy and making reasonable progress. Taking rest breaks as needed. +BM. Denies palpitations, dyspnea, cough, N/V, or joint pain. Was called Sunday evening for report of left lateral chest pain, patient denied any cardiac symptoms and it sounded more like musculoskeletal in nature. Ordered telemetry to monitor for any possible cardiac issues, review of telemetry has been negative and will be discontinued today. Also ordered a Lidoderm patch but the patient states this was never offered, MAR states that he refused. Patient does have some service issues and states that he was not given pain medicines yesterday when he was asking for them and also had prolonged wait periods after pressing the call light. CVA: No signs of shoulder-hand syndrome, post drug depression or worsening neurologic changes or spasticity. Continue to monitor. Continue secondary stroke prevention and therapy. Hypertension: Continue medications and adjust as needed, goal less than 140/90. Doing fairly well currently Left lateral rib pain: Nontender to palpation over entirety of chest and back. Lidoderm patch ordered, canceled original order and reordered this morning. Modalities can be used. Does not appear to be cardiogenic in nature Diabetes, new onset: Continue carb controlled diet and coverage with sliding scale. Glucose within a good range. Patient will discharge home on Jardiance which is not available currently HFrEF: New diagnosis, no signs of fluid overload or cardiac distress. Continue to monitor Leukocytosis: Without fever, increased again. Will order chest x-ray and urinalysis ADL and mobility dysfunction: Continue therapy to improve patient's ability to ambulate and perform ADLs with the least amount of intervention as possible. Poor balance: Continue therapy to improve patient's steadiness on feet and static/dynamic balance Impulsiveness and poor safety awareness: Continue therapy to improve safety awareness. This may be personality more so than actual stroke related issue. Have consulted and discussed with speech therapy to assess for cognitive issues that may be able to be addressed. Speech therapy evaluation reviewed, no significant deficits noted All records, vitals, labs and medications were reviewed. No other issues per patient, nursing or therapy. Objective - Exam Narrative Exam: MUSCULOSKELETAL SPECIALTY EXAM CONSTITUTIONAL: Well developed, well nourished, appropriately groomed. RIGHT hand dominant. RESPIRATORY: Clear to auscultation bilaterally, no increased work of breathing CARDIOVASCULAR: Regular Rate/ Rhythm, no swelling, edema or tenderness in BUE or BLE. All ext remities warm. GI: + bowel sounds, soft, NTTP, nondistended. INTEGUMENTARY: Normal, no lesion, rash, masses or bruising noted in extremities. MUSCULOSKELETAL: BUE and BLE normal without defect, crepitus, subluxation, effusion, arthritic changes or TTP. No tenderness to palpation over the thorax including anterior, lateral or posterior aspects. R 4+/5 L 2-3 /5 patient does have some return of function in the shoulder but not full range, trace movement in the fingers and wrist ROM decreased on the left, normal on right Tone decreased on left, normal on right NEURO: CN VII : Left facial droop CN XI : Reduced shoulder shrug on the left Sensation intact in all extremities without extinction. No tremor noted in 4 extremities. Naming and repetition intact. Follows 2 step commands. Aphasia not appreciated Dysarthria very mild Dysphagia not appreciated Neglect not appreciated POSTURE and GAIT: Sitting posture good. Balance impaired, ambulating with assist. PSYCH: Alert, oriented x3, affect appears euthymic. Insight appears intact on examination but therapy states that he is impulsive and has decreased safety awareness, quite possibly personality related. - Constitutional Vitals: Vital Signs - 12hr 03/26/22 03/26/22 03/26/22 20:56 21:59 22:00 Temperature 98.3 F Pulse Rate 72 72 Respiratory 16 Rate Blood Pressure 133/49 O2 Sat by Pulse 96 95 Oximetry - Allied health notes Allied health notes reviewed: nursing, PT, OT - Labs CBC & Chem 7: 03/25/22 07:42 03/24/22 06:32 Labs: Laboratory Results - last 72 hr 03/24/22 03/24/22 03/24/22 08:21 12:03 16:05 WBC RBC Hgb Hct MCV MCH MCHC RDW Plt Count POC Glucose 97 114 H 114 H 03/24/22 03/25/22 03/25/22 20:58 07:18 07:42 WBC 13.0 H RBC 5.46 H Hgb 12.3 Hct 38.9 MCV 71 L MCH 23 L MCHC 32 RDW 15.7 H Plt Count 161 POC Glucose 147 H 111 H 03/25/22 03/25/22 03/25/22 12:25 16:22 20:21 WBC RBC Hgb Hct MCV MCH MCHC RDW Plt Count POC Glucose 116 H 167 H 132 H 03/26/22 03/26/22 03/26/22 07:48 11:39 15:59 WBC RBC Hgb Hct MCV MCH MCHC RDW Plt Count POC Glucose 102 121 H 113 H 03/26/22 20:54 WBC RBC Hgb Hct MCV MCH MCHC RDW Plt Count POC Glucose 111 H Assessment and Plan CVA: Continue Secondary Stroke Prevention (Antithrombotic, Statin (Goal LDL-C <70), BP control (Goal <140/90), GLU control (Goal A1c <7), and lifestyle modification). Monitor for recurrent stroke or post-stroke recrudescence. Continue neuromotor therapy as above. Family training when available. Monitor for post stroke depression, cognitive deficits, seizure, dysphagia, aphasia, shoulder hand syndrome, sensory deficits, spasticity, bowel/bladder deficits, sleep disturbance, vision deficits and DVT. Prognosis for recovery and Secondary Stroke Prevention discussed. Follow up with Neurology. No driving until cleared by Neurologist. 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 Goal blood pressure less than 140/90. Avoid hypotension Type 2 diabetes: New diagnosis, continue coverage with sliding scale insulin. Carb controlled diet. A1c 6.5. Outside hospital ordered Jardiance which is not available in house. We will start patient on Jardiance at discharge which is what they do it as well. Slight leukocytosis: No fever over the weekend but continue leukocytosis of 13, recheck pending. Patient denying any symptoms, likely not clinically significant. Due to continued elevation of white count will check chest x-ray and urinalysis Left lateral chest wall pain: Does not appear to be cardiogenic in nature, will discontinue telemetry. No tenderness to palpation over entirety of thorax. Will re-order Lidoderm patch and continue modalities for improvement. HFrEF: New diagnosis EF 35 to 40%. Continue Coreg and Cozaar. Monitor for any signs of volume overload. Start Jardiance as outpatient Marijuana abuse: Discussed with patient the need for cessation. Patient states that he would likely cut down to 1/day. Impulsiveness and poor safety awareness: Continue to reinforce safety through therapy. Speech therapy eval did not elucidate any significant deficits. May be personality related. ADL dysfunction: OT will work on improving ability to perform ADLs (including assistive devices) to increase independence and decrease caregiver burden and improve functional transfers and mobility training. Difficulty walking: PT will work on gait training and proper use of assistive devices and advance as appropriate to use of stairs and outside ambulation on uneven surfaces. Unsteadiness on feet: PT will work on improving static and dynamic sitting and s tanding balance as well as proper use of assistive devices to decrease risk of falls. Abnormality of gait: PT will work to improve safety and efficiency of gait through neuromotor training and gait training along with instruction on proper use of assistive devices. Muscle weakness: PT & OT will work on strengthening exercises to improve functional strength including mixture of closed and open kinetic chain exercises. Debility: PT & OT will work on improving overall functional status to improve participation with ADLs, mobility and social involvement. Fatigue: PT & OT will work on improving endurance through aerobic exercises and therapeutic activity while monitoring patients tolerance for activity and vital signs as needed. DVT ppx: Lovenox Pain: Continue physical modalities in therapy and pain medications as needed to achieve functional pain control. Sleep: Monitor and address as needed. Bowel: Monitor and address as needed. Appetite: Monitor and address as needed. Discharge planning: Pending therapy progress and care plan meeting. Will continue discussion with therapy team, SW, patient and family. Restrictions/ Precautions: Falls WB status: FWB Functional Hx: ADLs: Independent Cognition: Independent Mobility: No AD Barriers to Discharge: Decreased mobility and ability to perform self care, balance deficits, weakness Estimated Length of Stay: 1418 days Discharge Destination: Home with family
[2022-03-27 08:37] LABS: Hematocrit 36.9 % (35.5-45.6); Hemoglobin 11.8 gm/dl (11.8-15.2); Mean Corpuscular HGB Conc 32 % (32-34); Mean Corpuscular Volume 72 fl (84-94); Platelet Count 190 K/mm3 (140-440); Red Blood Count 5.14 M/mm3 (3.65-5.03)
[2022-03-27] MEDS: INSULIN LISPRO 100 UNIT/ML SUB-Q SCH ×4 (08:39→22:10)
[2022-03-27] MEDS: LOSARTAN 25 MG TAB PO SCH (12:39)
[2022-03-27] MEDS: ENOXAPARIN 40 MG/0.4 ML INJ SUB-Q SCH (12:40)
[2022-03-27] MEDS: carvediloL 3.125 MG TAB PO SCH ×2 (12:40→22:09)
[2022-03-27] MEDS: LIDOCAINE 5% 1 EACH PATCH TD SCH (12:40)
[2022-03-27] MEDS: ASPIRIN EC 81 MG TAB PO SCH (12:40)
--- NOTE | 2022-03-27 16:28 | XRay Report ---
CHEST 2 VIEWS INDICATION / CLINICAL INFORMATION: L lateral chest pain, leukocytosis. COMPARISON: None available. FINDINGS: SUPPORT DEVICES: None. HEART / MEDIASTINUM: No significant abnormality. LUNGS / PLEURA: Mild density left lower lung could represent left lower lung atelectasis. No pneumoth orax. ADDITIONAL FINDINGS: No significant additional findings. IMPRESSION: 1. Left lower lung atelectasis. Possible small left effusion Signer Name: Irineo Beebe MD Signed: 03/27/2022 4:23 PM Workstation Name: [id number]
[2022-03-27 21:53] LABS: Mucus,Urine FEW /HPF
[2022-03-27 21:56] LABS: Bilirubin,Urine Negative (Negative); Blood,Urine Negative (Negative); Color,Urine Yellow (Yellow); Protein,Urine <15 mg/dL mg/dL (Negative)
[2022-03-28] MEDS: INSULIN LISPRO 100 UNIT/ML SUB-Q SCH ×3 (08:50→22:35)
[2022-03-28] MEDS: ENOXAPARIN 40 MG/0.4 ML INJ SUB-Q SCH (08:59)
[2022-03-28] MEDS: LIDOCAINE 5% 1 EACH PATCH TD SCH (09:00)
[2022-03-28] MEDS: carvediloL 3.125 MG TAB PO SCH ×2 (09:01→21:45)
[2022-03-28] MEDS: LOSARTAN 25 MG TAB PO SCH (09:02)
[2022-03-28] MEDS: ASPIRIN EC 81 MG TAB PO SCH (09:02)
--- NOTE | 2022-03-28 13:16 | Progress Note ---
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 CT head showed progressive, expanding right-sided infarct involving right frontal and right parietal lobes. MRI brain demonstrated the infarcts again involving the right posterior frontal lobe and the right occipital lobe with a small amount of hemorrhage at the right occipital lobe and trace amount at the right frontal lobe. Patient had a A1c of 6.5 which is a new diagnosis for the patient. Permissive hypertension allowed until medications were restarted. Patient is right-hand dominant and has left hemiparesis. Questionable visual involvement however patient states that he is seeing fine and appears to be able to identify objects in the room. Echo showed HFrEF which is also new diagnosis with an ejection fraction of 35 to 40%. Patient was started on Jardiance at discharge however this is not available in the hospital, will start patient on this medication once he discharges from us. After the patient was medically stabilized they were transferred for further rehabilitation. All available medical records have been reviewed. Plan of care was discussed with patient and family. Interval History: Patient is participating in therapy and making reasonable progress. Taking rest breaks as needed. +BM. Denies palpitations, dyspnea, cough, N/V, or joint pain. Lateral chest pain better today, wearing Lidoderm patch. CVA: No signs of shoulder-hand syndrome, post drug depression or worsening neurologic changes or spasticity. Continue to monitor. Continue secondary stroke prevention and therapy. Hypertension: Continue medications and adjust as needed, goal less than 140/90. Doing fairly well currently Left lateral rib pain: Nontender to palpation over entirety of chest and back. Lidoderm patch ordered. Not cardiogenic in nature per telemetry. Chest x-ray does show left lobe atelectasis and a possible small pleural effusion. We will start nebs and order respiratory consult Diabetes, new onset: Continue carb controlled diet and coverage with sliding scale. Glucose within a good range. Patient will discharge home on Jardiance which is not available currently HFrEF: New diagnosis, no signs of fluid overload or cardiac distress. Continue to monitor Leukocytosis: Leukocytosis has normalized, urinalysis is negative. Chest x-ray did show atelectasis ADL and mobility dysfunction: Continue therapy to improve patient's ability to ambulate and perform ADLs with the least amount of intervention as possible. Poor balance: Continue therapy to improve patient's steadiness on feet and static/dynamic balance, doing fairly well with cane Impulsiveness and poor safety awareness: Continue therapy to improve safety awareness. Safety awareness is improving All records, vitals, labs and medications were reviewed. No other issues per patient, nursing or therapy. Patient was discussed during team conference, making very good progress overall. Working on higher level functioning to ensure that he is safe to go home including walking on uneven surfaces, up and down stairs, fall recovery, higher level ADLs. At this point we will discharge patient home with a straight cane, tub transfer bench and a 3 and 1. Patient will receive outpatient physical therapy and Occupational Therapy. We will look to discharge home on Sunday with resumption of care outpatient the following week. In total, greater than 38 minutes was expended on patient care today including discussions with nursing, patient and therapy. Objective - Exam Narrative Exam: MUSCULOSKELETAL SPECIALTY EXAM CONSTITUTIONAL: Well developed, well nourished, appropriately groomed. RIGHT hand dominant. RESPIRATORY: Clear to auscultation bilaterally, no increased work of breathing CARDIOVASCULAR: Regular Rate/ Rhythm, no swelling, edema or tenderness in BUE or BLE. All extremities warm. GI: + bowel sounds, soft, NTTP, nondistended. INTEGUMENTARY: Normal, no lesion, rash, masses or bruising noted in extremities. MUSCULOSKELETAL: BUE and BLE normal without defect, crepitus, subluxation, effusion, arthritic changes or TTP. R 4+/5 L 2-3 /5 patient does have some return of function in the shoulder but not full range, minimal movement in the fingers and wrist but this has improved ROM decreased on the left, normal on right Tone decreased on left, normal on right NEURO: CN VII : Left facial droop CN XI : Reduced shoulder shrug on the left Sensation intact in all extremities without extinction. No tremor noted in 4 extremities. Naming and repetition intact. Follows 2 step commands. Aphasia not appreciated Dysarthria very mild Dysphagia not appreciated Neglect not appreciated POSTURE and GAIT: Sitting posture good. Balance impaired, ambulating with cane PSYCH: Alert, oriented x3, affect appears euthymic. Insight appears intact on examination and safety awareness is improved - Constitutional Vitals: Vital Signs - 12hr 03/28/22 03/28/22 09:26 10:00 Temperature 97.4 F L Pulse Rate 66 65 Pulse Rate [ 65 Right Radial] Respiratory 18 Rate Blood Pressure 128/62 [Right] O2 Sat by Pulse 97 Oximetry - Allied health notes Allied health notes reviewed: nursing, PT, OT - Labs CBC & Chem 7: 03/27/22 08:21 03/24/22 06:32 Labs: Laboratory Results - last 72 hr 03/25/22 03/25/22 03/26/22 16:22 20:21 07:48 WBC RBC Hgb Hct MCV MCH MCHC RDW Plt Count POC Glucose 167 H 132 H 102 Urine Color Urine Turbidity Urine pH Ur Specific [place] Urine Protein Urine Glucose (UA) Urine Ketones Urine Blood Urine Nitrite Ur Reducing Substances Urine Bilirubin Urine Ictotest Urine Urobilinogen Ur Leukocyte Esterase Urine WBC (Auto) Urine RBC (Auto) U Epithel Cells (Auto) Urine Mucus 03/26/22 03/26/22 03/26/22 11:39 15:59 20:54 WBC RBC Hgb Hct MCV MCH MCHC RDW Plt Count POC Glucose 121 H 113 H 111 H Urine Color Urine Turbidity Urine pH Ur Specific [place] Urine Protein Urine Glucose (UA) Urine Ketones Urine Blood Urine Nitrite Ur Reducing Substances Urine Bilirubin Urine Ictotest Urine Urobilinogen Ur Leukocyte Esterase Urine WBC (Auto) Urine RBC (Auto) U Epithel Cells (Auto) Urine Mucus 03/27/22 03/27/22 03/27/22 08:16 08:21 12:25 WBC 9.5 RBC 5.14 H Hgb 11.8 Hct 36.9 MCV 72 L MCH 23 L MCHC 32 RDW 16.0 H Plt Count 190 POC Glucose 118 H 109 H Urine Color Urine Turbidity Urine pH Ur Specific [place] Urine Protein Urine Glucose (UA) Urine Ketones Urine Blood Urine Nitrite Ur Reducing Substances Urine Bilirubin Urine Ictotest Urine Urobilinogen Ur Leukocyte Esterase Urine WBC (Auto) Urine RBC (Auto) U Epithel Cells (Auto) Urine Mucus 03/27/22 03/27/22 03/27/22 16:51 21:15 21:22 WBC RBC Hgb Hct MCV MCH MCHC RDW Plt Count POC Glucose 128 H 112 H Urine Color Yellow Urine Turbidity Clear Urine pH 6.0 Ur Specific [place] 1.015 Urine Protein <15 mg/dl Urine Glucose (UA) Negative Urine Ketones Negative Urine Blood Negative Urine Nitrite Negative Ur Reducing Substances Not Reportable Urine Bilirubin Negative Urine Ictotest Not Reportable Urine Urobilinogen 2.0 Ur Leukocyte Esterase Negative Urine WBC (Auto) 2.0 Urine RBC (Auto) 5.0 U Epithel Cells (Auto) < 1.0 Urine Mucus Few 03/28/22 07:49 WBC RBC Hgb Hct MCV MCH MCHC RDW Plt Count POC Glucose 103 Urine Color Urine Turbidity Urine pH Ur Specific [place] Urine Protein Urine Glucose (UA) Urine Ketones Urine Blood Urine Nitrite Ur Reducing Substances Urine Bilirubin Urine Ictotest Urine Urobilinogen Ur Leukocyte Esterase Urine WBC (Auto) Urine RBC (Auto) U Epithel Cells (Auto) Urine Mucus - Imaging and cardiology Chest x-ray: report reviewed, image reviewed Assessment and Plan CVA: Continue Secondary Stroke Prevention (Antithrombotic, Statin (Goal LDL-C <70), BP control (Goal <140/90), GLU control (Goal A1c <7), and lifestyle modification). Monitor for recurrent stroke or post-stroke recrudescence. Continue neuromotor therapy as above. Family training when available. Monitor for post stroke depression, cognitive deficits, seizure, dysphagia, aphasia, shoulder hand syndrome, sensory deficits, spasticity, bowel/bladder deficits, sleep disturbance, vision deficits and DVT. Prognosis for recovery and Secondary Stroke Prevention discussed. Follow up with Neurology. No driving until cleared by Neurologist. 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 Goal blood pressure less than 140/90. Avoid hypotension Type 2 diabetes: New diagnosis, continue coverage with sliding scale insulin. Carb controlled diet. A1c 6.5. Outside hospital ordered Jardiance which is not available in house. We will start patient on Jardiance at discharge which is what they do it as well. Slight leukocytosis: Leukocytosis normalized. Chest x-ray shows atelectasis but no pneumonia, urinalysis negative Left lateral chest wall pain: Does not appear to be cardiogenic in nature, will discontinue telemetry. No tenderness to palpation over entirety of thorax. Ayden l re-order Lidoderm patch and continue modalities for improvement. Chest x-ray showed atelectasis, will start duo nebs for short period HFrEF: New diagnosis EF 35 to 40%. Continue Coreg and Cozaar. Monitor for any signs of volume overload. Start Jardiance as outpatient Marijuana abuse: Discussed with patient the need for cessation. Patient states that he would likely cut down to 1/day. Impulsiveness and poor safety awareness: Continue to reinforce safety through therapy. Speech therapy eval did not elucidate any significant deficits. May be personality related. ADL dysfunction: OT will work on improving ability to perform ADLs (including assistive devices) to increase independence and decrease caregiver burden and improve functional transfers and mobility training. Difficulty walking: PT will work on gait training and proper use of assistive devices and advance as appropriate to use of stairs and outside ambulation on uneven surfaces. Unsteadiness on feet: PT will work on improving static and dynamic sitting and standing balance as well as proper use of assistive devices to decrease risk of falls. Abnormality of gait: PT will work to improve safety and efficiency of gait through neuromotor training and gait training along with instruction on proper use of assistive devices. Muscle weakness: PT & OT will work on strengthening exercises to improve functional strength including mixture of closed and open kinetic chain exercises. Debility: PT & OT will work on improving overall functional status to improve participation with ADLs, mobility and social involvement. Fatigue: PT & OT will work on improving endurance through aerobic exercises and therapeutic activity while monitoring patients tolerance for activity and vital signs as needed. DVT ppx: Lovenox Pain: Continue physical modalities in therapy and pain medications as needed to achieve functional pain control. Sleep: Monitor and address as needed. Bowel: Monitor and address as needed. Appetite: Monitor and address as needed. Discharge planning: Pending therapy progress and care plan meeting. Will continue discussion with therapy team, SW, patient and family. Look to discharge on Sunday with outpatient therapy, cane, tub transfer bench and 3 in 1. Restrictions/ Precautions: Falls WB status: FWB Functional Hx: ADLs: Independent Cognition: Independent Mobility: No AD Barriers to Discharge: Decreased mobility and ability to perform self care, balance deficits, weakness Estimated Length of Stay: 1418 days Discharge Destination: Home with family
[2022-03-28] MEDS: IPRATROPIUM/ALBUTEROL SULFATE 3 ML AMPUL.NEB IH SCH ×2 (15:00→20:39)
--- NOTE | 2022-03-29 07:59 | Progress Note ---
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 CT head showed progressive, expanding right-sided infarct involving right frontal and right parietal lobes. MRI brain demonstrated the infarcts again involving the right posterior frontal lobe and the right occipital lobe with a small amount of hemorrhage at the right occipital lobe and trace amount at the right frontal lobe. Patient had a A1c of 6.5 which is a new diagnosis for the patient. Permissive hypertension allowed until medications were restarted. Patient is right-hand dominant and has left hemiparesis. Questionable visual involvement however patient states that he is seeing fine and appears to be able to identify objects in the room. Echo showed HFrEF which is also new diagnosis with an ejection fraction of 35 to 40%. Patient was started on Jardiance at discharge however this is not available in the hospital, will start patient on this medication once he discharges from us. After the patient was medically stabilized they were transferred for further rehabilitation. All available medical records have been reviewed. Plan of care was discussed with patient and family. Interval History: Patient is participating in therapy and making reasonable progress. Taking rest breaks as needed. +BM. Denies palpitations, dyspnea, cough, N/V, or joint pain. Lateral chest pain better today, tolerating DuoNebs. Discussed with patient discharge, follow-ups and medications. Also had a lengthy conversation with him about cessation of marijuana use. At this point the patient states that he will likely cut back from smoking twice a day to once a day and work on attempting to progress to full cessation. Discussed DME and outpatient therapy. Patient prefers to utilize the outpatient pharmacy services available here on campus for discharge medications. His may have picked up some medications which were prescribed from [facility] at discharge from their hospital, will need to clarify. In total greater than 37 minutes was invested in patient care today including >50% counseling coordinating care. CVA: No signs of shoulder-hand syndrome, post drug depression or worsening neurologic changes or spasticity. Continue to monitor. Continue secondary stroke prevention and therapy. Hypertension: Continue medications and adjust as needed, goal less than 140/90. Doing fairly well currently Left lateral rib pain: Nontender to palpation over entirety of chest and back. Lidoderm patch ordered. Not cardiogenic in nature per telemetry. Chest x-ray does show left lobe atelectasis and a possible small pleural effusion. We will start nebs and order respiratory consult Diabetes, new onset: Continue carb controlled diet and coverage with sliding scale. Glucose within a good range. Patient will discharge home on Jardiance which is not available currently HFrEF: New diagnosis, no signs of fluid overload or cardiac distress. Continue to monitor Leukocytosis: Leukocytosis has normalized, urinalysis is negative. Chest x-ray did show atelectasis ADL and mobility dysfunction: Continue therapy to improve patient's ability to ambulate and perform ADLs with the least amount of intervention as possible. Seeing a good bit of improvement Poor balance: Continue therapy to improve patient's steadiness on feet and static/dynamic balance, doing fairly well with cane. Improving Impulsiveness and poor safety awareness: Continue therapy to improve safety awareness. Safety awareness is improving All records, vitals, labs and medications were reviewed. No other issues per patient, nursing or therapy. Objective - Exam Narrative Exam: MUSCULOSKELETAL SPECIALTY EXAM CONSTITUTIONAL: Well developed, well nourished, appropriately groomed. RIGHT hand dominant. RESPIRATORY: Clear to auscultation bilaterally, no increased work of breathing CARDIOVASCULAR: Regular Rate/ Rhythm, no swelling, edema or tenderness in BUE or BLE. All extrem ities warm. GI: + bowel sounds, soft, NTTP, nondistended. INTEGUMENTARY: Normal, no lesion, rash, masses or bruising noted in extremities. MUSCULOSKELETAL: BUE and BLE normal without defect, crepitus, subluxation, effusion, arthritic changes or TTP. No tenderness palpation over thorax R 4+/5 L 2-3 /5 patient does have some return of function in the shoulder but not full range, minimal movement in the fingers and wrist but this has improved ROM decreased on the left, normal on right Tone decreased on left, normal on right NEURO: CN VII : Left facial droop CN XI : Reduced shoulder shrug on the left Sensation intact in all extremities without extinction. No tremor noted in 4 extremities. Naming and repetition intact. Follows 2 step commands. Aphasia not appreciated Dysarthria very mild Dysphagia not appreciated Neglect not appreciated POSTURE and GAIT: Sitting posture good. Balance impaired, ambulating with cane PSYCH: Alert, oriented x3, affect appears euthymic. Insight appears intact on examination and safety awareness is improved - Constitutional Vitals: Vital Signs - 12hr 03/28/22 03/28/22 03/28/22 20:47 21:45 22:00 Pulse Rate 74 Pulse Rate [ 87 Anterior Bilateral Throughout] Respiratory 20 Rate [Anterior Bilateral Throughout] Blood Pressure 166/77 O2 Sat by Pulse 96 Oximetry - Allied health notes Allied health notes reviewed: nursing, PT, OT - Labs CBC & Chem 7: 03/27/22 08:21 03/24/22 06:32 Labs: Laboratory Results - last 72 hr 03/26/22 03/26/22 03/26/22 07:48 11:39 15:59 WBC RBC Hgb Hct MCV MCH MCHC RDW Plt Count POC Glucose 102 121 H 113 H Urine Color Urine Turbidity Urine pH Ur Specific [place] Urine Protein Urine Glucose (UA) Urine Ketones Urine Blood Urine Nitrite Ur Reducing Substances Urine Bilirubin Urine Ictotest Urine Urobilinogen Ur Leukocyte Esterase Urine WBC (Auto) Urine RBC (Auto) U Epithel Cells (Auto) Urine Mucus 03/26/22 03/27/22 03/27/22 20:54 08:16 08:21 WBC 9.5 RBC 5.14 H Hgb 11.8 Hct 36.9 MCV 72 L MCH 23 L MCHC 32 RDW 16.0 H Plt Count 190 POC Glucose 111 H 118 H Urine Color Urine Turbidity Urine pH Ur Specific [place] Urine Protein Urine Glucose (UA) Urine Ketones Urine Blood Urine Nitrite Ur Reducing Substances Urine Bilirubin Urine Ictotest Urine Urobilinogen Ur Leukocyte Esterase Urine WBC (Auto) Urine RBC (Auto) U Epithel Cells (Auto) Urine Mucus 03/27/22 03/27/22 03/27/22 12:25 16:51 21:15 WBC RBC Hgb Hct MCV MCH MCHC RDW Plt Count POC Glucose 109 H 128 H Urine Color Yellow Urine Turbidity Clear Urine pH 6.0 Ur Specific [place] 1.015 Urine Protein <15 mg/dl Urine Glucose (UA) Negative Urine Ketones Negative Urine Blood Negative Urine Nitrite Negative Ur Reducing Substances Not Reportable Urine Bilirubin Negative Urine Ictotest Not Reportable Urine Urobilinogen 2.0 Ur Leukocyte Esterase Negative Urine WBC (Auto) 2.0 Urine RBC (Auto) 5.0 U Epithel Cells (Auto) < 1.0 Urine Mucus Few 03/27/22 03/28/22 03/28/22 21:22 07:49 15:19 WBC RBC Hgb Hct MCV MCH MCHC RDW Plt Count POC Glucose 112 H 103 111 H Urine Color Urine Turbidity Urine pH Ur Specific [place] Urine Protein Urine Glucose (UA) Urine Ketones Urine Blood Urine Nitrite Ur Reducing Substances Urine Bilirubin Urine Ictotest Urine Urobilinogen Ur Leukocyte Esterase Urine WBC (Auto) Urine RBC (Auto) U Epithel Cells (Auto) Urine Mucus 03/28/22 21:24 WBC RBC Hgb Hct MCV MCH MCHC RDW Plt Count POC Glucose 127 H Urine Color Urine Turbidity Urine pH Ur Specific [place] Urine Protein Urine Glucose (UA) Urine Ketones Urine Blood Urine Nitrite Ur Reducing Substances Urine Bilirubin Urine Ictotest Urine Urobilinogen Ur Leukocyte Esterase Urine WBC (Auto) Urine RBC (Auto) U Epithel Cells (Auto) Urine Mucus Assessment and Plan CVA: Continue Secondary Stroke Prevention (Antithrombotic, Statin (Goal LDL-C <70), BP control (Goal <140/90), GLU control (Goal A1c <7), and lifestyle modification). Monitor for recurrent stroke or post-stroke recrudescence. Continue neuromotor therapy as above. Family training when available. Monitor for post stroke depression, cognitive deficits, seizure, dysphagia, aphasia, shoulder hand syndrome, sensory deficits, spasticity, bowel/bladder deficits, sleep disturbance, vision deficits and DVT. Prognosis for recovery and Secondary Stroke Prevention discussed. Follow up with Neurology. No driving until cleared by Neurologist. Right DESTINATION COORDINATOR and MCA infarcts Hypertension: Continue medications and adjust for normotension. Goal blood pressure less than 140/90. Avoid hypotension Type 2 diabetes: New diagnosis, continue coverage with sliding scale insulin. Carb controlled diet. A1c 6.5. Outside hospital ordered Jardiance which is not available in house. We will start patient on Jardiance at discharge which is what they do it as well. Slight leukocytosis: Leukocytosis normalized. Chest x-ray shows atelectasis but no pneumonia, urinalysis negative Left lateral chest wall pain: Does not appear to be cardiogenic in nature, will discontinue telemetry. No tenderness to palpation over entirety of thorax. Will re-order Lidoderm patch and continue modalities for improvement. Chest x- ray showed atelectasis, will start duo nebs for short period, tolerating treatment HFrEF: New diagnosis EF 35 to 40%. Continue Coreg and Cozaar. Monitor for any signs of volume overload. Start Jardiance as outpatient Marijuana abuse: Discussed with patient the need for cessation. Patient states that he would likely cut down to 1/day. Impulsiveness and poor safety awareness: Continue to reinforce safety through therapy. Speech therapy eval did not elucidate any significant deficits. May be personality related. ADL dysfunction: OT will work on improving ability to perform ADLs (including assistive devices) to increase independence and decrease caregiver burden and improve functional transfers and mobility training. Difficulty walking: PT will work on gait training and proper use of assistive devices and advance as appropriate to use of stairs and outside ambulation on uneven surfaces. Unsteadiness on feet: PT will work on improving static and dynamic sitting and standing balance as well as proper use of assistive devices to decrease risk of falls. Abnormality of gait: PT will work to improve safety and efficiency of gait thr ough neuromotor training and gait training along with instruction on proper use of assistive devices. Muscle weakness: PT & OT will work on strengthening exercises to improve functional strength including mixture of closed and open kinetic chain exercises. Debility: PT & OT will work on improving overall functional status to improve participation with ADLs, mobility and social involvement. Fatigue: PT & OT will work on improving endurance through aerobic exercises and therapeutic activity while monitoring patients tolerance for activity and vital signs as needed. DVT ppx: Lovenox Pain: Continue physical modalities in therapy and pain medications as needed to achieve functional pain control. Sleep: Monitor and address as needed. Bowel: Monitor and address as needed. Appetite: Monitor and address as needed. Discharge planning: Pending therapy progress and care plan meeting. Will continue discussion with therapy team, SW, patient and family. Look to discharge on Sunday with outpatient therapy, cane, tub transfer bench and 3 in 1. Restrictions/ Precautions: Falls WB status: FWB Functional Hx: ADLs: Independent Cognition: Independent Mobility: No AD Barriers to Discharge: Decreased mobility and ability to perform self care, balance deficits, weakness Estimated Length of Stay: 1418 days Discharge Destination: Home with family
[2022-03-29] MEDS: INSULIN LISPRO 100 UNIT/ML SUB-Q SCH ×4 (08:00→22:03)
[2022-03-29] MEDS: IPRATROPIUM/ALBUTEROL SULFATE 3 ML AMPUL.NEB IH SCH ×3 (08:14→21:22)
[2022-03-29 08:40] LABS: Hematocrit 35.8 % (35.5-45.6); Hemoglobin 11.6 gm/dl (11.8-15.2); Mean Corpuscular HGB Conc 32 % (32-34); Mean Corpuscular Volume 71 fl (84-94); Platelet Count 228 K/mm3 (140-440); Red Blood Count 5.04 M/mm3 (3.65-5.03); Red Cell Distribution Width 16.2 % (13.2-15.2)
[2022-03-29] MEDS: ASPIRIN EC 81 MG TAB PO SCH (12:21)
[2022-03-29] MEDS: carvediloL 3.125 MG TAB PO SCH ×2 (12:21→22:04)
[2022-03-29] MEDS: LOSARTAN 25 MG TAB PO SCH (12:22)
[2022-03-29] MEDS: ENOXAPARIN 40 MG/0.4 ML INJ SUB-Q SCH (12:22)
[2022-03-29] MEDS: LIDOCAINE 5% 1 EACH PATCH TD SCH (12:23)
[2022-03-30] MEDS: ENOXAPARIN 40 MG/0.4 ML INJ SUB-Q SCH (09:36)
[2022-03-30] MEDS: carvediloL 3.125 MG TAB PO SCH ×2 (09:36→21:11)
[2022-03-30] MEDS: ASPIRIN EC 81 MG TAB PO SCH (09:36)
[2022-03-30] MEDS: INSULIN LISPRO 100 UNIT/ML SUB-Q SCH ×4 (09:36→21:13)
[2022-03-30] MEDS: LOSARTAN 25 MG TAB PO SCH (09:36)
[2022-03-30] MEDS: IPRATROPIUM/ALBUTEROL SULFATE 3 ML AMPUL.NEB IH SCH ×3 (09:38→19:59)
[2022-03-30] MEDS: LIDOCAINE 5% 1 EACH PATCH TD SCH (09:40)
--- NOTE | 2022-03-30 14:08 | Progress Note ---
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 CT head showed progressive, expanding right-sided infarct involving right frontal and right parietal lobes. MRI brain demonstrated the infarcts again involving the right posterior frontal lobe and the right occipital lobe with a small amount of hemorrhage at the right occipital lobe and trace amount at the right frontal lobe. Patient had a A1c of 6.5 which is a new diagnosis for the patient. Permissive hypertension allowed until medications were restarted. Patient is right-hand dominant and has left hemiparesis. Questionable visual involvement however patient states that he is seeing fine and appears to be able to identify objects in the room. Echo showed HFrEF which is also new diagnosis with an ejection fraction of 35 to 40%. Patient was started on Jardiance at discharge however this is not available in the hospital, will start patient on this medication once he discharges from us. After the patient was medically stabilized they were transferred for further rehabilitation. All available medical records have been reviewed. Plan of care was discussed with patient and family. Interval History: Patient is participating in therapy and making reasonable progress. Taking rest breaks as needed. +BM. Denies palpitations, dyspnea, cough, N/V, or joint pain. Lateral chest pain better today, tolerating DuoNebs. Met with the patient and his during family training and discussed follow-up, prognosis, secondary stroke prevention and discharge plans. All questions were answered. 36 minutes was invested in counseling with the patient and his including items above and marijuana cessation. feels that the patient would better served with outpatient closer to home, will make sure that he has a prescription to go home with tomorrow versus leaving it here for outpatient follow-up. CVA: No signs of shoulder-hand syndrome, post drug depression or worsening neurologic changes or spasticity. Continue to monitor. Continue secondary stroke prevention and therapy. Hypertension: Continue medications and adjust as needed, goal less than 140/90. Doing fairly well currently Left lateral rib pain: Nontender to palpation over entirety of chest and back. Lidoderm patch ordered. Not cardiogenic in nature per telemetry. Chest x-ray does show left lobe atelectasis and a possible small pleural effusion. We will start nebs and order respiratory consult Diabetes, new onset: Continue carb controlled diet and coverage with sliding scale. Glucose within a good range. Patient will discharge home on Jardiance which is not available currently HFrEF: New diagnosis, no signs of fluid overload or cardiac distress. Continue to monitor Leukocytosis: Leukocytosis has normalized, urinalysis is negative. Chest x-ray did show atelectasis ADL and mobility dysfunction: Continue therapy to improve patient's ability to ambulate and perform ADLs with the least amount of intervention as possible. Seeing a good bit of improvement Poor balance: Continue therapy to improve patient's steadiness on feet and static/dynamic balance, doing fairly well with cane. Improving Impulsiveness and poor safety awareness: Continue therapy to improve safety awareness. Safety awareness is improving All records, vitals, labs and medications were reviewed. No other issues per patient, nursing or therapy. Objective - Exam Narrative Exam: MUSCULOSKELETAL SPECIALTY EXAM CONSTITUTIONAL: Well developed, well nourished, appropriately groomed. RIGHT hand dominant. RESPIRATORY: Clear to auscultation bilaterally, no increased work of breathing CARDIOVASCULAR: Regular Rate/ Rhythm, no swelling, edema or tenderness in BUE or BLE. All extremities warm. GI: + bowel sounds, soft, NTTP, nondistended. INTEGUMENTARY: Normal, no lesion, rash, masses or bruising noted in extremities. MUSCULOSKELETAL: BUE and BLE normal without defect, crepitus, subluxation, effusion, arthritic changes or TTP. No tenderness palpation over thorax R 4+/5 L 2-3 /5 patient does have some return of function in the shoulder but not full range, minimal movement in the fingers and wrist but this has improved ROM decreased on the left, normal on right Tone decreased on left, normal on right NEURO: CN VII : Left facial droop CN XI : Reduced shoulder shrug on the left Sensation intact in all extremities without extinction. No tremor noted in 4 extremities. Naming and repetition intact. Follows 2 step commands. Aphasia not appreciated Dysarthria very mild Dysphagia not appreciated Neglect not appreciated POSTURE and GAIT: Sitting posture good. Balance impaired but improved, ambulating with cane PSYCH: Alert, oriented x3, affect appears euthymic. Insight appears intact on examination and safety awareness is improved - Constitutional Vitals: Vital Signs - 12hr 03/30/22 03/30/22 09:20 12:32 Temperature 98.0 F 98.2 F Pulse Rate 67 Respiratory 16 18 Rate Blood Pressure 167/61 118/55 O2 Sat by Pulse 97 Oximetry - Allied health notes Allied health notes reviewed: nursing, PT, OT - Labs CBC & Chem 7: 03/29/22 07:56 03/24/22 06:32 Labs: Laboratory Results - last 72 hr 03/27/22 03/27/22 03/27/22 16:51 21:15 21:22 WBC RBC Hgb Hct MCV MCH MCHC RDW Plt Count POC Glucose 128 H 112 H Urine Color Yellow Urine Turbidity Clear Urine pH 6.0 Ur Specific [place] 1.015 Urine Protein <15 mg/dl Urine Glucose (UA) Negative Urine Ketones Negative Urine Blood Negative Urine Nitrite Negative Ur Reducing Substances Not Reportable Urine Bilirubin Negative Urine Ictotest Not Reportable Urine Urobilinogen 2.0 Ur Leukocyte Esterase Negative Urine WBC (Auto) 2.0 Urine RBC (Auto) 5.0 U Epithel Cells (Auto) < 1.0 Urine Mucus Few 03/28/22 03/28/22 03/28/22 07:49 15:19 21:24 WBC RBC Hgb Hct MCV MCH MCHC RDW Plt Count POC Glucose 103 111 H 127 H Urine Color Urine Turbidity Urine pH Ur Specific [place] Urine Protein Urine Glucose (UA) Urine Ketones Urine Blood Urine Nitrite Ur Reducing Substances Urine Bilirubin Urine Ictotest Urine Urobilinogen Ur Leukocyte Esterase Urine WBC (Auto) Urine RBC (Auto) U Epithel Cells (Auto) Urine Mucus 03/29/22 03/29/22 03/29/22 07:56 16:32 21:32 WBC 9.3 RBC 5.04 H Hgb 11.6 L Hct 35.8 MCV 71 L MCH 23 L MCHC 32 RDW 16.2 H Plt Count 228 POC Glucose 112 H 118 H Urine Color Urine Turbidity Urine pH Ur Specific [place] Urine Protein Urine Glucose (UA) Urine Ketones Urine Blood Urine Nitrite Ur Reducing Substances Urine Bilirubin Urine Ictotest Urine Urobilinogen Ur Leukocyte Esterase Urine WBC (Auto) Urine RBC (Auto) U Epithel Cells (Auto) Urine Mucus 03/30/22 12:28 WBC RBC Hgb Hct MCV MCH MCHC RDW Plt Count POC Glucose 120 H Urine Color Urine Turbidity Urine pH Ur Specific [place] Urine Protein Urine Glucose (UA) Urine Ketones Urine Blood Urine Nitrite Ur Reducing Substances Urine Bilirubin Urine Ictotest Urine Urobilinogen Ur Leukocyte Esterase Urine WBC (Auto) Urine RBC (Auto) U Epithel Cells (Auto) Urine Mucus Assessment and Plan CVA: Continue Secondary Stroke Prevention (Antithrombotic, Statin (Goal LDL-C <70), BP control (Goal <140/90), GLU control (Goal A1c <7), and lifestyle modification). Monitor for recurrent stroke or post-stroke recrudescence. Continue neuromotor therapy as above. Family training when available. Monitor for post stroke depression, cognitive deficits, seizure, dysphagia, aphasia, shoulder hand syndrome, sensory deficits, spasticity, bowel/bladder deficits, sleep disturbance, vision deficits and DVT. Prognosis for recovery and Secondary Stroke Prevention discussed. Follow up with Neurology. No driving until cleared by Neurologist. 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 Goal blood pressure less than 140/90. Avoid hypotension Type 2 diabetes: New diagnosis, continue coverage with sliding scale insulin. Carb controlled diet. A1c 6.5. Outside hospital ordered Jardiance which is not available in house. We will start patient on Jardiance at discharge which is what they did as well. Slight leukocytosis: Leukocytosis normalized. Chest x-ray shows atelectasis but no pneumonia, urinalysis negative Left lateral chest wall pain: Does not appear to be cardiogenic in nature, will discontinue telemetry. No tenderness to palpation over entirety of thorax. Will re-order Lidoderm patch and continue modalities for improvement. Chest x- ray showed atelectasis, will start duo nebs for short period, tolerating treatment HFrEF: New diagnosis EF 35 to 40%. Continue Coreg and Cozaar. Monitor for any signs of volume overload. Start Jardiance as outpatient Marijuana abuse: Discussed with patient the need for cessation. Patient states that he would likely cut down to 1/day. Impulsiveness and poor safety awareness: Continue to reinforce safety through therapy. Speech therapy eval did not elucidate any significant deficits. May be personality related. ADL dysfunction: OT will work on improving ability to perform ADLs (including assistive devices) to increase independence and decrease caregiver burden and improve functional transfers and mobility training. Difficulty walking: PT will work on gait training and proper use of assistive devices and advance as appropriate to use of stairs and outside ambulation on uneven surfaces. Unsteadiness on feet: PT will work on improving static and dynamic sitting and standing balance as well as proper use of assistive devices to decrease risk of falls. Abnormality of gait: PT will work to improve safety and efficiency of gait through neuromotor training and gait training along with instruction on proper use of assistive devices. Muscle weakness: PT & OT will work on strengthening exercises to improve functional strength including mixture of closed and open kinetic chain exercises. Debility: PT & OT will work on improving overall functional status to improve participation with ADLs, mobility and social involvement. Fatigue: PT & OT will work on improving endurance through aerobic exercises and therapeutic activity while monitoring patients tolerance for activity and vital signs as needed. DVT ppx: Lovenox Pain: Continue physical modalities in therapy and pain medications as needed to achieve functional pain control. Sleep: Monitor and address as needed. Bowel: Monitor and address as needed. Appetite: Monitor and address as needed. Discharge planning: Pending therapy progress and care plan meeting. Will continue discussion with therapy team, SW, patient and family. Look to discharge on Sunday with outpatient therapy, cane, tub transfer bench and 3 in 1. Restrictions/ Precautions: Falls WB status: FWB Functional Hx: ADLs: Independent Cognition: Independent Mobility: No AD Barriers to Discharge: Decreased mobility and ability to perform self care, balance deficits, weakness Estimated Length of Stay: 1418 days Discharge Destination: Home with family
[2022-03-30 21:13] VITALS: BP 133/54
[2022-03-31] MEDS: INSULIN LISPRO 100 UNIT/ML SUB-Q SCH (08:06)
--- NOTE | 2022-03-31 08:53 | Discharge Summary ---
Providers - Providers Date of Admission: 03/20/22 23:58 Date of discharge: 03/31/22 Attending physician: SONDRA THORNTON III, MD 03/20/22 16:42 Occupational Therapy Evaluate and Treat [CONS] Routine Comment: Reason For Exam: ADL dysfunction Physical Therapy Evaluation and Treat [CONS] Routine Comment: Reason For Exam: Mobility Dysfunction 03/21/22 15:58 Speech Therapy Evaluation and Treat [CONS] Routine Reason For Exam: CVA, Assess/Treat Speech/Cog 03/21/22 15:59 Consult to Case Management [CONS] Routine Services Needed at Discharge: Home Health Services Notified:: patient case coordinator Additional Physician Instructions: Will likely need PT and OT along with nursing at discharge Consult to Dietitian/Nutrition [CONS] Routine Physician Instructions: Reason For Exam: New onset diabetes and CVA Reason for Consult: Diet education Primary care physician: FAMILY LAW MEDIATOR Hospitalization Reason for admission: 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 CT head showed progressive, expanding right-sided infarct involving right frontal and right parietal lobes. MRI brain demonstrated the infarcts again involving the right posterior frontal lobe and the right occipital lobe with a small amount of hemorrhage at the right occipital lobe and trace amount at the right frontal lobe. Patient had a A1c of 6.5 which is a new diagnosis for the patient. Permissive hypertension allowed until medications were restarted. Patient is right-hand dominant and has left hemiparesis. Questionable visual involvement however patient states that he is seeing fine and appears to be able to identify objects in the room. Echo showed HFrEF which is also new diagnosis with an ejection fraction of 35 to 40%. Patient was started on Jardiance at discharge however this is not available in the hospital, will start patient on this medication once he discharges from us. After the patient was medically stabilized they were transferred for further rehabilitation. All available medical records have been reviewed. Plan of care was discussed with patient and family. CVA: Continue Secondary Stroke Prevention (Antithrombotic, Statin (Goal LDL-C <70), BP control (Goal <140/90), GLU control (Goal A1c <7), and lifestyle modification). Monitor for recurrent stroke or post-stroke recrudescence. Continue neuromotor therapy as above. Family training when available. Monitor for post stroke depression, cognitive deficits, seizure, dysphagia, aphasia, shoulder hand syndrome, sensory deficits, spasticity, bowel/bladder deficits, sleep disturbance, vision deficits and DVT. Prognosis for recovery and Secondary Stroke Prevention discussed. Follow up with Neurology. No driving until cleared by Neurologist. 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 Goal blood pressure less than 140/90. Avoid hypotension. Blood pressure has been in good range on current medication Type 2 diabetes: New diagnosis, continue coverage with sliding scale insulin. Carb controlled diet. A1c 6.5. Outside hospital ordered Jardiance which is not available in house. We will start patient on Jardiance at discharge which is when the outside hospital also started the medication. Slight leukocytosis: Leukocytosis normalized. Chest x-ray shows atelectasis but no pneumonia, urinalysis negative. Tolerated DuoNebs well and seems to be improved. Left lateral chest wall pain: Does not appear to be cardiogenic in nature, will discontinue telemetry. No tenderness to palpation over entirety of thorax. Will re-order Lidoderm patch and continue modalities for improvement. Chest x- ray showed atelectasis, will start duo nebs for short period, tolerating treatment, much improved HFrEF: New diagnosis EF 35 to 40%. Continue Coreg and Cozaar. Monitor for any signs of volume overload. Start Jardiance as outpatient. Will need to follow- up with cardiology, information has been given to the patient personally prior to discharge and is included in this discharge summary. Marijuana abuse: Discussed with patient the need for cessation. Patient states that he would likely cut down to 1/day. Impulsiveness and poor safety awareness: Continue to reinforce safety through therapy. Speech therapy eval did not elucidate any significant deficits. May be personality related. ADL dysfunction: OT will work on improving ability to perform ADLs (including assistive devices) to increase independence and decrease caregiver burden and improve functional transfers and mobility training. Difficulty walking: PT will work on gait training and proper use of assistive devices and advance as appropriate to use of stairs and outside ambulation on uneven surfaces. Disposition: HOME / SELF CARE / HOMELESS Final Discharge Diagnosis (Prints w/discharge instructions): CVA, hypertension, CHF, diabetes, ADL and mobility deficits Time spent for discharge: >35 mins Core Measure Documentation - Palliative Care Palliative Care/ Comfort Measures: Not Applicable - Core Measures Any of the following diagnoses?: heart failure, stroke - Heart Failure Discharge Requirements BOYD/ARB for LVSD if EF <40%: Yes Beta carie at discharge: Yes Heart failure comment: Patient will need to follow-up with Dr. Aram Garcia. - Stroke Discharge Requirements Statin for LDL = or >70 mg/dl on DC: Yes Anticoag for atrial fib/atrial flutter: Not Applicable Antithrombotic for ischemic stroke: Yes Exam - Physical Exam Narrative exam: MUSCULOSKELETAL SPECIALTY EXAM CONSTITUTIONAL: Well developed, well nourished, appropriately groomed. RIGHT hand dominant. RESPIRATORY: Clear to auscultation bilaterally, no increased work of breathing CARDIOVASCULAR: Regular Rate/ Rhythm, no swelling, edema or tenderness in BUE or BLE. All extremities warm. GI: + bowel sounds, soft, NTTP, nondistended. INTEGUMENTARY: Normal, no lesion, rash, masses or bruising noted in extremities. MUSCULOSKELETAL: BUE and BLE normal without defect, crepitus, subluxation, effusion, arthritic changes or TTP. No tenderness palpation over thorax R 4+/5 L 2-3 /5 patient does have some return of function in the shoulder but not full range, minimal movement in the fingers and wrist but this has improved ROM decreased on the left, normal on right Tone decreased on left, normal on right NEURO: CN VII : Left facial droop CN XI : Reduced shoulder shrug on the left Sensation intact in all extremities without extinction. No tremor noted in 4 extremities. Naming and repetition intact. Follows 2 step commands. Aphasia not appreciated Dysarthria very mild Dysphagia not appreciated Neglect not appreciated POSTURE and GAIT: Sitting posture good. Balance impaired but improved, ambulating with cane PSYCH: Alert, oriented x3, affect appears euthymic. Insight appears intact on examination and safety awareness is improved - Constitutional Vitals: Temp Pulse Resp BP Pulse Ox 98.2 F 75 20 133/54 98 03/30/22 19:38 03/30/22 21:11 03/30/22 19:59 03/30/22 21:11 03/30/22 22:00 Plan Activity: advance as tolerated, no driving until cleared by PCP, up only with assistance, fall precautions Weight Bearing Status: Full Weight Bearing Diet: diabetic (Heart healthy) Special Instructions: record daily BP diary, record blood sugar diary, follow up in rehab (Outpatient PT and OT prescription given to patient, copy in medical chart) Durable Medical Equipment Needed Upon Discharge: Cane, Bedside Commode, other (Tub transfer bench) Care Plan Goals: Patient will need to follow-up with neurology after discharge. A list of neurologist in the local area has been personally given to the patient. Patient will also need to follow-up with cardiology. Contact information for Dr. Aram Garcia has been given to the patient in writing. [address] , [facility] [place] [address]. Patient will need to follow-up with primary care physician as well for continued monitoring and management of chronic medical conditions. Follow up with: PRIMARY CAREMD [Primary Care Provider] - 7 Days ARAM GARCIA MD [Staff Physician] - 7 Days Prescriptions: AtorvaSTATin [Lipitor] 40 mg PO QHS #30 tablet carvediloL [Coreg] 3.125 mg PO BID #60 tablet Losartan [Cozaar] 25 mg PO QDAY #30 tablet Aspirin EC [Halfprin EC] 81 mg PO QDAY #30 tablet Empagliflozin [Jardiance] 10 mg PO DAILY #30 tab
[2022-03-31] MEDS: IPRATROPIUM/ALBUTEROL SULFATE 3 ML AMPUL.NEB IH SCH ×2 (09:38→15:04)
[2022-03-31] MEDS: ENOXAPARIN 40 MG/0.4 ML INJ SUB-Q SCH (11:50)
[2022-03-31] MEDS: LOSARTAN 25 MG TAB PO SCH (11:50)
[2022-03-31] MEDS: ASPIRIN EC 81 MG TAB PO SCH (11:50)
[2022-03-31] MEDS: carvediloL 3.125 MG TAB PO SCH (11:50)
[2022-03-31] MEDS: LIDOCAINE 5% 1 EACH PATCH TD SCH (11:51)
== END 2022-03-31 14:00 | disposition home or self-care (01) | DRG 57 ==
LOC: UNDOADMIN 12:42 → 4A 12:42
PROVIDERS: ADMIT Physical Medicine & Rehabilitation; ATTEND Physical Medicine & Rehabilitation
DX: I69.951 Hemiplegia and hemiparesis following unspecified cerebrovascular disease affecting right dominant side (principal); I50.20 Unspecified systolic (congestive) heart failure; I11.0 Hypertensive heart disease with heart failure; R26.9 Unspecified abnormalities of gait and mobility; F12.10 Cannabis abuse, uncomplicated; R26.2 Difficulty in walking, not elsewhere classified; R53.81 Other malaise; R07.81 Pleurodynia; E11.9 Type 2 diabetes mellitus without complications; Z83.3 Family history of diabetes mellitus; Z82.49 Family history of ischemic heart disease and other diseases of the circulatory system
CPT/HCPCS: 36415; 71046; 80048; 80053; 81001; 82962; 85025; 85027; 94640; 99406; G0378; Q9967; J1644; J1650; J1815